=== PATIENT | female | born 1955 | race Caucasian/White ===

== ENCOUNTER 2018-05-25 18:29 | Emergency (ER) | payer MEDICARE, OTHER ==
[~2018-05-25] VITALS: Ht 160 cm; Wt 78.3 kg
[~2018-05-25 18:29] MED LIST: AMBIEN10 MG PO; ASPIRIN 32325 MG/TAB PO; CARAFATE 1GM1 G PO; CARAFATE1 GM/10 ML PO; CHOLESTEROL MED; CLEOCIN HC150 MG/CAP PO; COMBIVENT INH14.7 GM IH; COPAXONE20 MG SC; COUMADIN 1MG1 MG/TAB PO; DOXYCYCLINE 10100 MG PO; FLAGYL500 MG PO; LEVAQUIN 750MG750 M1 PO; LOVENOX 100100 MG/ML SQ; LOVENOX 3030 MG/0.3; MIDRIN CAPSULE1 CAP PO; NEXIUM40 MG PO; NITRO-DUR0.4 MG/PAT TD; NITROSTAT0.4 MG/TAB SL; NORCO 325 MG-51 TAB PO; NORCO 325 MG-7.1 TAB PO; NORVASC 5MG5 MG/TAB PO; PEPCID 20MG TAB20 MG PO; PERCOCET 325 MG1 TA2 PO; PERCR 7.5 PO; PHENERGAN 25 TA25 MG PO; PRAVACHOL 40MG40 MG PO; PREVACID 15MG15 M1; PRILOSEC 20MG20 MG PO; PROMETHAZINE V473 M2; PULMICORT180 MCG/Ac IH; REBIF22 MCG/0.5 SC; REGLAN 10MG10 MG/TAB PO; TESSALON PERLE200 MG PO; TOPAMAX50 MG PO; TOPROL XL 25MG25 MG PO; TUSS PO; TYLENOL #3 301 UDTAB PO; TYLENOL 325MG325 MG PO; VITAMIN D8000 IU/ML PO; ZITHROMAX 250M250 MG PO
[2018-05-25 18:31] VITALS: TEMP 98.4
[2018-05-25 19:15] LABS: BASO # 0.1 (0.0-0.2); BASO % 0.6 % (0.0-2.0); EOS # 0.2 (0.0-0.7); EOS % 1.6 % (0-4.0); GRAN # 5.6 (1.4-6.5); GRAN % 57.3 % (42.2-75.2); HEMATOCRIT 38.8 % (37.0-47.0); HEMOGLOBIN 12.6 g/dl (12.5-16.0); LYMPH # 3.1 (1.2-3.4); LYMPH % 31.2 % (20.0-51.0); MEAN CELL VOLUME 84 fl (80.0-100.0); MEAN CORPUSCULAR HEMOGLOBIN 27 pg (27.0-31.0); MEAN CORPUSCULAR HGB CONC 33 g/dl (33.0-37.0); MEAN PLATELET VOLUME 9.2 fl (7.4-10.4); MONO # 0.9 (0.1-0.6); MONO % 8.8 % (1.7-9.3); PLATELET COUNT 360 K/mm3 (130-400); RED BLOOD COUNT 4.62 M/mm3 (4.10-5.30); REDCELL DISTRIBUTION WIDTH-CV 14.7 % (11.5-14.5)
[2018-05-25 19:17] LABS: INR 0.9 (0.8-3.0); PROTHROMBIN TIME 10.4 SECONDS (9.7-12.8)
[2018-05-25 19:21] LABS: ALANINE AMINOTRANSFERASE 39 U/L (9-52); ALBUMIN 4.5 gm/dL (3.5-5.0); ALKALINE PHOSPHATASE 70 U/L (50-136); ANION GAP 13 mmol/L (7-16); AST,SGOT 39 U/L (15-37); BILIRUBIN,TOTAL 0.3 mg/dL (0.0-1.0); BLOOD UREA NITROGEN 38 mg/dL (7-17); CALCIUM 9.4 mg/dL (8.4-10.2); CARBON DIOXIDE 26 mmol/L (22-30); CHLORIDE 96 mmol/L (98-107); GLUCOSE 108 mg/dL (74-106); LIPASE 43 U/L (23-300); POTASSIUM 3.8 mmol/L (3.4-5.0); SODIUM 135 mmol/L (137-145); TOTAL PROTEIN 7.9 gm/dL (6.4-8.2)
[2018-05-25 19:35] LABS: TROPONIN-I < 0.012 ng/mL (0.000-0.034)
[2018-05-25] MEDS ORDERED: NITRO-DUR0.1 MG/PAT TD (22:25)
[2018-05-25] MEDS ORDERED: NEURONTIN300 MG/CAP PO (22:26)
[2018-05-25] MEDS ORDERED: PRIL40 PO (22:26)
[2018-05-25] MEDS ORDERED: DEMADEX100 MG PO (22:27)
[2018-05-25 22:54] VITALS: BP 118/69; PULSE 76
== END 2018-05-25 22:56 | disposition home or self-care (01) ==
LOC: COL.ER 18:29
PROVIDERS: Emergency Medicine
DX: R07.9 Chest pain, unspecified (principal); G35 Multiple sclerosis; Z86.718 Personal history of other venous thrombosis and embolism; Z95.5 Presence of coronary angioplasty implant and graft; Z79.82 Long term (current) use of aspirin
CPT/HCPCS: J1200; J1885; J2930; J7030; Q9967

== ENCOUNTER 2018-06-08 16:55 | Emergency (ER) | payer MEDICARE, OTHER ==
[~2018-06-08] VITALS: Ht 160 cm; Wt 79.1 kg
[~2018-06-08 16:55] MED LIST changes: +DEMADEX100 MG PO; +NEURONTIN300 MG/CAP PO; +NITRO-DUR0.1 MG/PAT TD; +PRIL40 PO
[2018-06-08 17:01] VITALS: TEMP 98.2
[2018-06-08] MEDS ORDERED: PROVIGIL200 MG PO (17:17)
[2018-06-08] MEDS ORDERED: GLUCOPHAGE500 MG/TAB PO (17:18)
[2018-06-08] MEDS ORDERED: KLOR-CON 1010 MEQ PO (17:18)
[2018-06-08] MEDS ORDERED: CRESTOR20 MG PO (17:19)
[2018-06-08] MEDS ORDERED: LOFIBRA54 MG PO (17:19)
[2018-06-08] MEDS ORDERED: DEMADEX100 MG PO (17:20)
[2018-06-08] MEDS ORDERED: TOPAMAX50 MG PO (17:21)
[2018-06-08] MEDS ORDERED: ALDACTONE 25MG25 M1 PO (17:22)
[2018-06-08] MEDS ORDERED: B COMPLEX #11 TA1 PO (17:23)
[2018-06-08] MEDS ORDERED: VITAMIN D 1001000 IU (17:23)
[2018-06-08] MEDS ORDERED: MAGNESIUM500 MG PO (17:23)
[2018-06-08 17:38] LABS: BASO # 0.1 (0.0-0.2); BASO % 0.6 % (0.0-2.0); EOS # 0.2 (0.0-0.7); EOS % 1.2 % (0-4.0); GRAN # 8.2 (1.4-6.5); GRAN % 65.2 % (42.2-75.2); HEMATOCRIT 41.2 % (37.0-47.0); HEMOGLOBIN 13.6 g/dl (12.5-16.0); LYMPH # 3.1 (1.2-3.4); LYMPH % 24.4 % (20.0-51.0); MEAN CELL VOLUME 83 fl (80.0-100.0); MEAN CORPUSCULAR HEMOGLOBIN 27 pg (27.0-31.0); MEAN CORPUSCULAR HGB CONC 33 g/dl (33.0-37.0); MEAN PLATELET VOLUME 9.2 fl (7.4-10.4); MONO % 8.1 % (1.7-9.3); PLATELET COUNT 398 K/mm3 (130-400); RED BLOOD COUNT 4.99 M/mm3 (4.10-5.30); REDCELL DISTRIBUTION WIDTH-CV 14.5 % (11.5-14.5)
[2018-06-08 17:45] LABS: INR 0.9 (0.8-3.0); PROTHROMBIN TIME 10.4 SECONDS (9.7-12.8)
[2018-06-08 17:51] LABS: ALBUMIN 4.7 gm/dL (3.5-5.0); BILIRUBIN,TOTAL 0.6 mg/dL (0.0-1.0); CALCIUM 9.8 mg/dL (8.4-10.2); CREATININE, serum 2.06 mg/dL (0.52-1.25); TOTAL PROTEIN 8.3 gm/dL (6.4-8.2)
[2018-06-08 17:53] LABS: POTASSIUM 2.9 mmol/L (3.4-5.0)
[2018-06-08 18:07] LABS: COLLECTION METHOD CLEAN CATCH
[2018-06-08 18:16] LABS: HYALINE CAST >12 /lpf; MUCOUS Present /lpf; PH 5 (5-8); SQUAMOUS EPITHELIAL 0-2 /hpf; URINE APPEARANCE Clear; URINE BACTERIA None Seen /hpf; URINE BILIRUBIN Negative (NEGATIVE); URINE BLOOD Negative (NEGATIVE); URINE COLOR Straw; URINE GLUCOSE Negative (NEGATIVE); URINE KETONE Negative (NEGATIVE); URINE LEUKOCYTE ESTERASE Negative (NEGATIVE); URINE NITRATE Negative (NEGATIVE); URINE PROTEIN(semi-quant) Negative (NEGATIVE); URINE RBC 0-2 /hpf; URINE UROBILINOGEN Negative (NEGATIVE)
[2018-06-08] MEDS ORDERED: FLEXERIL 1010 MG/TAB PO (19:31)
[2018-06-08 19:43] VITALS: BP 125/67; PULSE 86
== END 2018-06-08 19:48 | disposition home or self-care (01) ==
LOC: COL.ER 16:55
PROVIDERS: Physician Assistant
DX: M79.605 Pain in left leg (principal); R79.89 Other specified abnormal findings of blood chemistry; I50.9 Heart failure, unspecified; Z86.718 Personal history of other venous thrombosis and embolism; I25.10 Atherosclerotic heart disease of native coronary artery without angina pectoris; Z86.711 Personal history of pulmonary embolism; Z79.82 Long term (current) use of aspirin; Z79.84 Long term (current) use of oral hypoglycemic drugs
CPT/HCPCS: J7030

== ENCOUNTER → 2018-06-30 | Outpatient (CLI) | payer MEDICARE, OTHER ==
[~2018-06-30] MED LIST changes: +ALDACTONE 25MG25 M1 PO; +ASPIRIN E.C. 8181 MG PO; +B COMPLEX #11 TA1 PO; +CRESTOR20 MG PO; +FLEXERIL 1010 MG/TAB PO; +GLUCOPHAGE500 MG/TAB PO; +KLOR-CON 1010 MEQ PO; +LOFIBRA54 MG PO; +MAGNESIUM500 MG PO; +MOTRIN 800800 MG/TAB PO; +NATURAL MAGNES200 MG PO; +NITRO-DUR0.3 MG/PAT TD; +PROVIGIL200 MG PO; +REQUIP 0.5MG0.5 MG PO; +TYLENOL W/COD1 UDTAB PO; +VITAMIN D 1001000 IU
== END ==
LOC: MC.RAD 09:48
DX: Z12.31 Encounter for screening mammogram for malignant neoplasm of breast (principal)

== ENCOUNTER 2018-07-01 06:56 | Day surgery (SDC) | payer MEDICARE, OTHER ==
[~2018-07-01] VITALS: Ht 160 cm; Wt 77.6 kg
[2018-07-01] VITALS (8 sets, daily range): BP systolic 109–132; BP diastolic 51–73; PULSE 70–86; TEMP 97–97.7
[~2018-07-01 06:56] MED LIST changes: -ASPIRIN E.C. 8181 MG PO; -MOTRIN 800800 MG/TAB PO; -NATURAL MAGNES200 MG PO; -NITRO-DUR0.3 MG/PAT TD; -REQUIP 0.5MG0.5 MG PO; -TYLENOL W/COD1 UDTAB PO
[2018-07-01] MEDS ORDERED: NATURAL MAGNES200 MG PO (07:47)
[2018-07-01] MEDS ORDERED: ASPIRIN E.C. 8181 MG PO (07:48)
[2018-07-01] MEDS ORDERED: REQUIP 0.5MG0.5 MG PO (07:50)
[2018-07-01] MEDS ORDERED: NITRO-DUR0.3 MG/PAT TD (07:51)
[2018-07-01] MEDS ORDERED: TYLENOL W/COD1 UDTAB PO (14:04)
[2018-07-01] MEDS ORDERED: MOTRIN 800800 MG/TAB PO (14:05)
== END 2018-07-01 15:20 | disposition home or self-care (01) ==
LOC: SDCO 06:56
DX: S46.011A Strain of muscle(s) and tendon(s) of the rotator cuff of right shoulder, initial encounter (principal); I50.9 Heart failure, unspecified; G35 Multiple sclerosis; I25.119 Atherosclerotic heart disease of native coronary artery with unspecified angina pectoris; J45.909 Unspecified asthma, uncomplicated; K21.9 Gastro-esophageal reflux disease without esophagitis; M19.90 Unspecified osteoarthritis, unspecified site; E11.43 Type 2 diabetes mellitus with diabetic autonomic (poly)neuropathy; K31.84 Gastroparesis; Z79.82 Long term (current) use of aspirin; Z79.84 Long term (current) use of oral hypoglycemic drugs; Z88.3 Allergy status to other anti-infective agents; Z90.49 Acquired absence of other specified parts of digestive tract; Z90.710 Acquired absence of both cervix and uterus; Z85.3 Personal history of malignant neoplasm of breast; Z86.711 Personal history of pulmonary embolism; Z86.718 Personal history of other venous thrombosis and embolism; Z83.3 Family history of diabetes mellitus; Z82.49 Family history of ischemic heart disease and other diseases of the circulatory system; Z82.61 Family history of arthritis
CPT/HCPCS: C1713; J0171; J0690; J1100; J1885; J2405; J2704; J3010; J7120

== ENCOUNTER 2018-07-07 12:59 | Emergency (ER) | payer MEDICARE, OTHER ==
[~2018-07-07] VITALS: Ht 160 cm; Wt 79.5 kg
[~2018-07-07 12:59] MED LIST changes: +ASPIRIN E.C. 8181 MG PO; +MOTRIN 800800 MG/TAB PO; +NATURAL MAGNES200 MG PO; +NITRO-DUR0.3 MG/PAT TD; +REQUIP 0.5MG0.5 MG PO; +TYLENOL W/COD1 UDTAB PO
[2018-07-07 13:05] VITALS: TEMP 99.2
[2018-07-07 14:16] LABS: BASO % 0.4 % (0.0-2.0); EOS # 0.2 (0.0-0.7); EOS % 2.5 % (0-4.0); GRAN # 4.4 (1.4-6.5); GRAN % 54.5 % (42.2-75.2); HEMATOCRIT 37.6 % (37.0-47.0); HEMOGLOBIN 12.3 g/dl (12.5-16.0); LYMPH # 2.7 (1.2-3.4); LYMPH % 33.3 % (20.0-51.0); MEAN CELL VOLUME 83 fl (80.0-100.0); MEAN CORPUSCULAR HEMOGLOBIN 27 pg (27.0-31.0); MEAN CORPUSCULAR HGB CONC 33 g/dl (33.0-37.0); MEAN PLATELET VOLUME 9.1 fl (7.4-10.4); MONO # 0.7 (0.1-0.6); MONO % 8.7 % (1.7-9.3); PLATELET COUNT 337 K/mm3 (130-400); RED BLOOD COUNT 4.52 M/mm3 (4.10-5.30); REDCELL DISTRIBUTION WIDTH-CV 14.5 % (11.5-14.5)
[2018-07-07 14:22] LABS: PARTIAL THROMBOPLASTIN TIME 26.9 SECONDS (26.0-37.0)
[2018-07-07 14:32] LABS: ALANINE AMINOTRANSFERASE 182 U/L (9-52); ALBUMIN 4.2 gm/dL (3.5-5.0); ALKALINE PHOSPHATASE 129 U/L (50-136); ANION GAP 13 mmol/L (7-16); AST,SGOT 96 U/L (15-37); BILIRUBIN,TOTAL 0.5 mg/dL (0.0-1.0); BLOOD UREA NITROGEN 21 mg/dL (7-17); CALCIUM 9.9 mg/dL (8.4-10.2); CARBON DIOXIDE 30 mmol/L (22-30); CHLORIDE 92 mmol/L (98-107); CREATININE, serum 1.24 mg/dL (0.52-1.25); GLUCOSE 101 mg/dL (74-106); POTASSIUM 3.7 mmol/L (3.4-5.0); SODIUM 135 mmol/L (137-145); TOTAL PROTEIN 7.6 gm/dL (6.4-8.2)
[2018-07-07 14:43] LABS: TROPONIN-I < 0.012 ng/mL (0.000-0.034)
[2018-07-07 17:20] VITALS: BP 109/68; PULSE 74
== END 2018-07-07 17:40 | disposition home or self-care (01) ==
LOC: COL.ER 12:59
PROVIDERS: Family Medicine
DX: R06.02 Shortness of breath (principal); R07.9 Chest pain, unspecified; E11.9 Type 2 diabetes mellitus without complications; I10 Essential (primary) hypertension; G35 Multiple sclerosis; G25.81 Restless legs syndrome; Z79.84 Long term (current) use of oral hypoglycemic drugs; Z79.82 Long term (current) use of aspirin; Z86.718 Personal history of other venous thrombosis and embolism
CPT/HCPCS: J1200; J2405; J2930; Q9967

== ENCOUNTER 2018-07-29 10:19 | Emergency (ER) | payer MEDICARE, OTHER ==
[~2018-07-29] VITALS: Ht 160 cm; Wt 78.2 kg
[2018-07-29 10:25] VITALS: TEMP 100
[2018-07-29 11:26] VITALS: BP 131/78; PULSE 79
== END 2018-07-29 11:26 | disposition other institution (70) ==
LOC: COL.ER 10:19
DX: S90.32XA Contusion of left foot, initial encounter (principal); G35 Multiple sclerosis; Z79.84 Long term (current) use of oral hypoglycemic drugs; Z79.82 Long term (current) use of aspirin; W22.8XXA Striking against or struck by other objects, initial encounter

== ENCOUNTER 2018-08-21 08:03 | Emergency (ER) | payer MEDICARE, OTHER ==
[~2018-08-21] VITALS: Ht 160 cm; Wt 79.1 kg
[2018-08-21 08:14] LABS: COLLECTION METHOD CLEAN CATCH
[2018-08-21 08:27] LABS: PH 6 (5-8); SQUAMOUS EPITHELIAL None Seen /hpf; URINE APPEARANCE Turbid; URINE BACTERIA None Seen /hpf; URINE BILIRUBIN Negative (NEGATIVE); URINE BLOOD 3+ (NEGATIVE); URINE COLOR Red; URINE GLUCOSE Negative (NEGATIVE); URINE KETONE Negative (NEGATIVE); URINE LEUKOCYTE ESTERASE 1+ (NEGATIVE); URINE NITRATE Negative (NEGATIVE); URINE PROTEIN(semi-quant) 2+ (NEGATIVE); URINE RBC >50 /hpf; URINE UROBILINOGEN Negative (NEGATIVE)
[2018-08-21] MEDS ORDERED: PYRIDIUM 100MG100 MG PO (08:40)
[2018-08-21] MEDS ORDERED: OMNICEF 300MG300 MG PO (08:40)
[2018-08-21 08:53] VITALS: BP 135/75; PULSE 85; TEMP 98
== END 2018-08-21 08:53 | disposition other institution (70) ==
LOC: COL.ER 08:03
PROVIDERS: Emergency Medicine
DX: N30.90 Cystitis, unspecified without hematuria (principal); Z90.710 Acquired absence of both cervix and uterus; Z79.84 Long term (current) use of oral hypoglycemic drugs

== ENCOUNTER → 2018-09-25 | Outpatient (CLI) | payer MEDICARE, OTHER ==
[~2018-09-25] MED LIST changes: +OMNICEF 300MG300 MG PO; +PYRIDIUM 100MG100 MG PO
== END ==
LOC: COL.RAD 09-23 09:00
DX: H91.8X2 Other specified hearing loss, left ear (principal); Z86.69 Personal history of other diseases of the nervous system and sense organs
CPT/HCPCS: A9585

== ENCOUNTER 2018-10-05 08:00 | Emergency (ER) | payer MEDICARE, OTHER ==
[~2018-10-05] VITALS: Ht 160 cm; Wt 81.0 kg
[2018-10-05 08:04] VITALS: TEMP 98.8
[2018-10-05] MEDS ORDERED: VENTOLIN0.09 MG IH (08:19)
[2018-10-05] MEDS ORDERED: COPAXONE40 MG/ML SQ (08:25)
[2018-10-05] MEDS ORDERED: TRULICITY0.75 MG/0. SQ (08:27)
[2018-10-05 08:48] LABS: COLLECTION METHOD CLEAN CATCH
[2018-10-05 08:56] LABS: HYALINE CAST >12 /lpf; MUCOUS Present /lpf; PH 5 (5-8); SQUAMOUS EPITHELIAL None Seen /hpf; URINE APPEARANCE Hazy; URINE BACTERIA None Seen /hpf; URINE BILIRUBIN Negative (NEGATIVE); URINE BLOOD Negative (NEGATIVE); URINE COLOR Yellow; URINE GLUCOSE Negative (NEGATIVE); URINE KETONE Negative (NEGATIVE); URINE LEUKOCYTE ESTERASE Trace (NEGATIVE); URINE NITRATE Negative (NEGATIVE); URINE PROTEIN(semi-quant) Negative (NEGATIVE); URINE RBC 0-2 /hpf; URINE UROBILINOGEN Negative (NEGATIVE)
[2018-10-05 09:48] LABS: BASO # 0.1 (0.0-0.2); BASO % 0.5 % (0.0-2.0); EOS # 0.2 (0.0-0.7); EOS % 1.7 % (0-4.0); GRAN # 5.9 (1.4-6.5); GRAN % 64.3 % (42.2-75.2); HEMATOCRIT 43.1 % (37.0-47.0); HEMOGLOBIN 14.1 g/dl (12.5-16.0); LYMPH # 2.4 (1.2-3.4); LYMPH % 25.7 % (20.0-51.0); MEAN CELL VOLUME 83 fl (80.0-100.0); MEAN CORPUSCULAR HEMOGLOBIN 27 pg (27.0-31.0); MEAN CORPUSCULAR HGB CONC 33 g/dl (33.0-37.0); MEAN PLATELET VOLUME 9.5 fl (7.4-10.4); MONO # 0.7 (0.1-0.6); MONO % 7.4 % (1.7-9.3); PLATELET COUNT 338 K/mm3 (130-400); REDCELL DISTRIBUTION WIDTH-CV 14.9 % (11.5-14.5)
[2018-10-05 09:59] LABS: ALBUMIN 4.8 gm/dL (3.5-5.0); BILIRUBIN,TOTAL 0.6 mg/dL (0.0-1.0); CALCIUM 10.2 mg/dL (8.4-10.2); CREATININE, serum 1.63 mg/dL (0.52-1.25); POTASSIUM 3.2 mmol/L (3.4-5.0); TOTAL PROTEIN 8.6 gm/dL (6.4-8.2)
[2018-10-05] MEDS ORDERED: OMNICEF 300MG300 MG PO (10:54)
[2018-10-05] MEDS ORDERED: WALKER MC (11:35)
[2018-10-05 11:41] VITALS: BP 126/80; PULSE 88
== END 2018-10-05 11:42 | disposition home or self-care (01) ==
LOC: COL.ER 08:00
PROVIDERS: Emergency Medicine
DX: N39.0 Urinary tract infection, site not specified (principal); G43.909 Migraine, unspecified, not intractable, without status migrainosus; G35 Multiple sclerosis; E78.5 Hyperlipidemia, unspecified; Z90.49 Acquired absence of other specified parts of digestive tract; Z90.710 Acquired absence of both cervix and uterus; Z90.89 Acquired absence of other organs; Z98.890 Other specified postprocedural states; Z85.3 Personal history of malignant neoplasm of breast
CPT/HCPCS: A4216; J0696; J7030

== ENCOUNTER 2018-10-18 14:02 | Emergency (ER) | payer MEDICARE, OTHER ==
[~2018-10-18] VITALS: Ht 160 cm; Wt 82.7 kg
[~2018-10-18 14:02] MED LIST changes: +COPAXONE40 MG/ML SQ; +TRULICITY0.75 MG/0. SQ; +VENTOLIN0.09 MG IH; +WALKER MC
[2018-10-18 14:07] VITALS: BP 132/89
[2018-10-18 15:06] LABS: COLLECTION METHOD CLEAN CATCH
[2018-10-18 15:12] LABS: MUCOUS Present /lpf; PH 7 (5-8); SQUAMOUS EPITHELIAL 0-2 /hpf; URINE APPEARANCE Clear; URINE BACTERIA None Seen /hpf; URINE BILIRUBIN Negative (NEGATIVE); URINE BLOOD 1+ (NEGATIVE); URINE COLOR Yellow; URINE GLUCOSE Negative (NEGATIVE); URINE KETONE Negative (NEGATIVE); URINE LEUKOCYTE ESTERASE Negative (NEGATIVE); URINE NITRATE Negative (NEGATIVE); URINE PROTEIN(semi-quant) Negative (NEGATIVE); URINE RBC 0-2 /hpf; URINE UROBILINOGEN Negative (NEGATIVE)
[2018-10-18 15:20] VITALS: TEMP 97.9
[2018-10-18 16:19] LABS: BASO # 0.1 (0.0-0.2); BASO % 0.6 % (0.0-2.0); EOS # 0.1 (0.0-0.7); EOS % 1.2 % (0-4.0); GRAN # 7.4 (1.4-6.5); GRAN % 64.2 % (42.2-75.2); HEMATOCRIT 41.1 % (37.0-47.0); HEMOGLOBIN 12.8 g/dl (12.5-16.0); LYMPH # 2.8 (1.2-3.4); LYMPH % 24.4 % (20.0-51.0); MEAN CELL VOLUME 87 fl (80.0-100.0); MEAN CORPUSCULAR HEMOGLOBIN 27 pg (27.0-31.0); MEAN CORPUSCULAR HGB CONC 31 g/dl (33.0-37.0); MEAN PLATELET VOLUME 9.5 fl (7.4-10.4); MONO # 0.9 (0.1-0.6); PLATELET COUNT 281 K/mm3 (130-400); RED BLOOD COUNT 4.72 M/mm3 (4.10-5.30); REDCELL DISTRIBUTION WIDTH-CV 14.7 % (11.5-14.5)
[2018-10-18 16:33] LABS: ALBUMIN 4.3 gm/dL (3.5-5.0); BILIRUBIN,TOTAL 0.6 mg/dL (0.0-1.0); C-REACTIVE PROTEIN 1.2 mg/dL (0.0-0.9); CALCIUM 9.7 mg/dL (8.4-10.2); CREATININE, serum 1.04 mg/dL (0.52-1.25); POTASSIUM 3.3 mmol/L (3.4-5.0); TOTAL PROTEIN 7.6 gm/dL (6.4-8.2)
[2018-10-18] MEDS ORDERED: ELIQUIS 5MG PO (17:45)
[2018-10-18 18:00] VITALS: PULSE 80
== END 2018-10-18 18:00 | disposition home or self-care (01) ==
LOC: COL.ER 14:02
PROVIDERS: Physician Assistant
DX: I82.4Z2 Acute embolism and thrombosis of unspecified deep veins of left distal lower extremity (principal); E78.5 Hyperlipidemia, unspecified; Z79.82 Long term (current) use of aspirin; Z90.49 Acquired absence of other specified parts of digestive tract; Z98.890 Other specified postprocedural states; Z85.3 Personal history of malignant neoplasm of breast
CPT/HCPCS: J1170; J2405

== ENCOUNTER → 2018-10-20 | Outpatient (CLI) | payer MEDICARE, OTHER ==
[~2018-10-20] MED LIST changes: +ELIQUIS 5MG PO
== END ==
LOC: COL.RAD 13:00
DX: R06.02 Shortness of breath (principal); Z86.718 Personal history of other venous thrombosis and embolism; Z98.890 Other specified postprocedural states
CPT/HCPCS: J1200; J2930; Q9967

== ENCOUNTER 2018-11-11 15:45 | Outpatient (RCR) | payer MEDICARE, OTHER | END 2018-11-15 | disposition still patient (30) | LOC: WSST | DX: G35 Multiple sclerosis (principal); R13.10 Dysphagia, unspecified | CPT/HCPCS: G8996-GN; G8997-GN; G9168-GN; G9169-GN ==

== ENCOUNTER 2018-12-17 14:30 | Outpatient (RCR) | payer MEDICARE, OTHER ==
[2018-12-20] MEDS ORDERED: ELIQUIS 5MG PO (13:36)
[2018-12-20] MEDS ORDERED: NEURONTIN600 MG/TAB PO (13:38)
[2018-12-20] MEDS ORDERED: ALDACTONE 25MG25 M1 PO (13:39)
[2019-01-15] MEDS ORDERED: NUEDEXTA 20 MG-1 CAP PO (17:30)
[2019-01-15] MEDS ORDERED: MIRALAX PA17 GM/Dose PO (17:30)
[2019-01-15] MEDS ORDERED: ZAROXOLYN 2.52.5 MG PO (21:51)
[2019-01-15] MEDS ORDERED: CARDIZEM CD 12120 MG PO (21:51)
[2019-01-15] MEDS ORDERED: VITAMIN D 1001000 IU PO (21:55)
[2019-01-15] MEDS ORDERED: RISPERDAL 0.5M0.5 MG PO (21:55)
== END 2019-02-23 | disposition home or self-care (01) ==
LOC: WSST
DX: R13.13 Dysphagia, pharyngeal phase (principal); R49.0 Dysphonia; R41.81 Age-related cognitive decline; G35 Multiple sclerosis

== ENCOUNTER 2018-12-20 12:43 | Emergency (ER) | payer MEDICARE, OTHER ==
[~2018-12-20] VITALS: Ht 160 cm; Wt 82.3 kg
[2018-12-20 12:48] VITALS: TEMP 99.6
[2018-12-20 13:30] LABS: BASO # 0.1 (0.0-0.2); EOS # 0.1 (0.0-0.7); GRAN # 4.9 (1.4-6.5); GRAN % 54.9 % (42.2-75.2); HEMOGLOBIN 14.3 g/dl (12.5-16.0); LYMPH # 2.7 (1.2-3.4); MEAN CELL VOLUME 81 fl (80.0-100.0); MEAN CORPUSCULAR HEMOGLOBIN 26 pg (27.0-31.0); MEAN CORPUSCULAR HGB CONC 33 g/dl (33.0-37.0); MEAN PLATELET VOLUME 9.7 fl (7.4-10.4); MONO # 1.2 (0.1-0.6); MONO % 12.8 % (1.7-9.3); PLATELET COUNT 423 K/mm3 (130-400); RED BLOOD COUNT 5.44 M/mm3 (4.10-5.30); REDCELL DISTRIBUTION WIDTH-CV 14.1 % (11.5-14.5)
[2018-12-20 13:35] LABS: ALANINE AMINOTRANSFERASE 18 U/L (9-52); ALBUMIN 4.9 gm/dL (3.5-5.0); ALKALINE PHOSPHATASE 99 U/L (50-136); ANION GAP 19 mmol/L (7-16); AST,SGOT 37 U/L (15-37); BILIRUBIN,TOTAL 0.7 mg/dL (0.0-1.0); BLOOD UREA NITROGEN 56 mg/dL (7-17); CALCIUM 10.5 mg/dL (8.4-10.2); CARBON DIOXIDE 26 mmol/L (22-30); CREATININE, serum 1.64 mg/dL (0.52-1.25); GLUCOSE 155 mg/dL (74-106); INR 1.7 (0.8-3.0); LIPASE 44 U/L (23-300); PROTHROMBIN TIME 19.4 SECONDS (9.7-12.8); SODIUM 134 mmol/L (137-145); TOTAL PROTEIN 8.5 gm/dL (6.4-8.2)
[2018-12-20] MEDS ORDERED: ELIQUIS 5MG PO (13:36)
[2018-12-20 13:37] LABS: CHLORIDE 89 mmol/L (98-107)
[2018-12-20] MEDS ORDERED: NEURONTIN600 MG/TAB PO (13:38)
[2018-12-20] MEDS ORDERED: ALDACTONE 25MG25 M1 PO (13:39)
[2018-12-20 13:47] LABS: TROPONIN-I < 0.012 ng/mL (0.000-0.035)
[2018-12-20 14:52] LABS: COLLECTION METHOD CLEAN CATCH
[2018-12-20 15:10] LABS: PH 7 (5-8); SQUAMOUS EPITHELIAL None Seen /hpf; URINE APPEARANCE Clear; URINE BACTERIA None Seen /hpf; URINE BILIRUBIN Negative (NEGATIVE); URINE BLOOD Negative (NEGATIVE); URINE COLOR Straw; URINE GLUCOSE Negative (NEGATIVE); URINE KETONE Negative (NEGATIVE); URINE LEUKOCYTE ESTERASE Trace (NEGATIVE); URINE NITRATE Negative (NEGATIVE); URINE PROTEIN(semi-quant) Negative (NEGATIVE); URINE RBC 0-2 /hpf; URINE UROBILINOGEN Negative (NEGATIVE)
[2018-12-20 19:20] VITALS: BP 108/66; PULSE 85
== END 2018-12-20 19:20 | disposition home or self-care (01) ==
LOC: COL.ER 12:43
PROVIDERS: Emergency Medicine
DX: R51 Headache (principal); R53.81 Other malaise; R06.02 Shortness of breath; Z86.718 Personal history of other venous thrombosis and embolism; Z90.49 Acquired absence of other specified parts of digestive tract
CPT/HCPCS: J1170; J1200; J1630; J2405; J2550; J2930; J3480; J7030; Q9967

== ENCOUNTER 2019-01-15 13:38 | Observation (INO) | payer MEDICARE, OTHER ==
[~2019-01-15] VITALS: Ht 160 cm; Wt 75.4 kg
[~2019-01-15 13:38] MED LIST changes: +NEURONTIN600 MG/TAB PO
[2019-01-15 14:57] LABS: ARTERIAL BLD GAS O2 SATURATION 95.5 % (92-100); ARTERIAL BLD GAS TCO2 CT 28.5; ARTERIAL BLOOD GAS BASE EXCESS 4.3 (-2-2); ARTERIAL BLOOD GAS HCO3 27.4 meq/L (22-26); ARTERIAL BLOOD GAS PCO2 36.3 mmHg (35-45); ARTERIAL BLOOD GAS PO2 76.9 mmHg (80-100)
[2019-01-15 14:58] LABS: BASO % 0.4 % (0.0-2.0); EOS # 0.2 (0.0-0.7); EOS % 2.4 % (0-4.0); GRAN # 4.9 (1.4-6.5); GRAN % 61.6 % (42.2-75.2); HEMATOCRIT 45.2 % (37.0-47.0); HEMOGLOBIN 14.3 g/dl (12.5-16.0); LYMPH % 25.1 % (20.0-51.0); MEAN CELL VOLUME 85 fl (80.0-100.0); MEAN CORPUSCULAR HEMOGLOBIN 27 pg (27.0-31.0); MEAN CORPUSCULAR HGB CONC 32 g/dl (33.0-37.0); MEAN PLATELET VOLUME 9.4 fl (7.4-10.4); MONO # 0.8 (0.1-0.6); MONO % 9.7 % (1.7-9.3); PLATELET COUNT 305 K/mm3 (130-400); RED BLOOD COUNT 5.35 M/mm3 (4.10-5.30); REDCELL DISTRIBUTION WIDTH-CV 15.5 % (11.5-14.5)
[2019-01-15 15:31] LABS: COLLECTION METHOD CLEAN CATCH
[2019-01-15 15:44] LABS: ALBUMIN 4.5 gm/dL (3.5-5.0); BILIRUBIN,TOTAL 0.5 mg/dL (0.0-1.0); CALCIUM 10.4 mg/dL (8.4-10.2); CREATININE, serum 1.32 mg/dL (0.52-1.25); TOTAL PROTEIN 8.2 gm/dL (6.4-8.2)
[2019-01-15 15:48] LABS: MUCOUS Present /lpf; PH 5 (5-8); SQUAMOUS EPITHELIAL None Seen /hpf; URINE APPEARANCE Clear; URINE BACTERIA None Seen /hpf; URINE BILIRUBIN Negative (NEGATIVE); URINE BLOOD Negative (NEGATIVE); URINE COLOR Straw; URINE GLUCOSE Negative (NEGATIVE); URINE KETONE Negative (NEGATIVE); URINE LEUKOCYTE ESTERASE Negative (NEGATIVE); URINE NITRATE Negative (NEGATIVE); URINE PROTEIN(semi-quant) Negative (NEGATIVE); URINE RBC 0-2 /hpf; URINE UROBILINOGEN Negative (NEGATIVE)
[2019-01-15 15:55] LABS: POTASSIUM 2.9 mmol/L (3.4-5.0)
[2019-01-15 16:19] VITALS: BP 140/82; PULSE 89
[2019-01-15] MEDS ORDERED: NUEDEXTA 20 MG-1 CAP PO (17:30)
[2019-01-15] MEDS ORDERED: MIRALAX PA17 GM/Dose PO (17:30)
[2019-01-15 17:35] LABS: TROPONIN-I < 0.012 ng/mL (0.000-0.035)
--- NOTE | 2019-01-15 20:30 | NUR ---
Admitted to medical floor from ER with hypokalemia, and orthostatic hypotension-on potassium protocol, IV fluids of NSat 150cc/hr, Up to bathroom with assist-slow but steady. Tele on.Understands to call for assistance to the bathroom-
[2019-01-15 21:07] VITALS: BP 144/68; PULSE 99; TEMP 97.8
[2019-01-15 21:37] LABS: TSH w REFLEX 2.6 uIU/mL (0.465-4.680)
[2019-01-15] MEDS ORDERED: CARDIZEM CD 12120 MG PO (21:51)
[2019-01-15] MEDS ORDERED: ZAROXOLYN 2.52.5 MG PO (21:51)
[2019-01-15] MEDS ORDERED: RISPERDAL 0.5M0.5 MG PO (21:55)
[2019-01-15] MEDS ORDERED: VITAMIN D 1001000 IU PO (21:55)
[2019-01-16 01:14] VITALS: BP 104/43; BP 93/48; PULSE 90; TEMP 97.9
--- NOTE | 2019-01-16 05:00 | NUR ---
Quiet night-- did get 3-4 hours of sleep towards the morning--did call Sangeeta ALBERTS for pain meds during the shift- pt having back pain--was given Ultram and Tylenol x1--most recent K+ 3.6, on protocol--will recheck this morning.
[2019-01-16 09:06] LABS: BASO % 0.4 % (0.0-2.0); EOS # 0.1 (0.0-0.7); EOS % 2.9 % (0-4.0); GRAN # 1.9 (1.4-6.5); HEMATOCRIT 39.1 % (37.0-47.0); MEAN CELL VOLUME 85 fl (80.0-100.0); MEAN CORPUSCULAR HGB CONC 31 g/dl (33.0-37.0); MEAN PLATELET VOLUME 9.6 fl (7.4-10.4); MONO # 0.5 (0.1-0.6); MONO % 10.6 % (1.7-9.3); PLATELET COUNT 263 K/mm3 (130-400); RED BLOOD COUNT 4.61 M/mm3 (4.10-5.30); REDCELL DISTRIBUTION WIDTH-CV 15.6 % (11.5-14.5)
[2019-01-16 09:14] LABS: HEMOGLOBIN 12.2 g/dl (12.5-16.0); MEAN CORPUSCULAR HEMOGLOBIN 26 pg (27.0-31.0)
[2019-01-16 09:15] LABS: ALBUMIN 3.8 gm/dL (3.5-5.0); BILIRUBIN,TOTAL 0.4 mg/dL (0.0-1.0); CALCIUM 9.6 mg/dL (8.4-10.2); CREATININE, serum 1.25 mg/dL (0.52-1.25); POTASSIUM 3.4 mmol/L (3.4-5.0); TOTAL PROTEIN 6.8 gm/dL (6.4-8.2)
[2019-01-16 09:44] VITALS: BP 108/56; PULSE 93; TEMP 97.9
[2019-01-16 09:51] VITALS: BP 129/57
--- NOTE | 2019-01-16 12:53 | NUR ---
SEAN met with the patient to discuss a discharge plan. The patient lives in [place] with her , Sher. The patient does not have any DME and she reports independence with ADLs. The patient's PCP is Dr. Katerine Inman and the patient receives her medications from [facility]. The patient reports no difficulties obtaining her medications. The patient does have advanced directives in the EMR. Upon discharge the patient plans to return home with Sher. There are no additional needs at this time.
[2019-01-16 13:00] VITALS: BP 106/54; PULSE 90; TEMP 97.9
[2019-01-16 14:09] VITALS: BP 106/54
== END 2019-01-16 18:57 | disposition home or self-care (01) ==
LOC: COL.ER 13:38 → MEDICAL 18:03
PROVIDERS: Emergency Medicine; Family Medicine; Nurse Practitioner Family; ADMIT Hospitalist
DX: R06.02 Shortness of breath (principal); R10.10 Upper abdominal pain, unspecified; E78.5 Hyperlipidemia, unspecified; E11.21 Type 2 diabetes mellitus with diabetic nephropathy; E11.43 Type 2 diabetes mellitus with diabetic autonomic (poly)neuropathy; K31.84 Gastroparesis; I25.10 Atherosclerotic heart disease of native coronary artery without angina pectoris; G35 Multiple sclerosis; K57.92 Diverticulitis of intestine, part unspecified, without perforation or abscess without bleeding; Z85.3 Personal history of malignant neoplasm of breast; Z86.718 Personal history of other venous thrombosis and embolism; Z86.711 Personal history of pulmonary embolism; Z79.01 Long term (current) use of anticoagulants; G43.909 Migraine, unspecified, not intractable, without status migrainosus; I50.30 Unspecified diastolic (congestive) heart failure; Z95.818 Presence of other cardiac implants and grafts; Z90.49 Acquired absence of other specified parts of digestive tract; Z90.710 Acquired absence of both cervix and uterus; Z95.828 Presence of other vascular implants and grafts; Z80.3 Family history of malignant neoplasm of breast; Z80.0 Family history of malignant neoplasm of digestive organs; Z80.8 Family history of malignant neoplasm of other organs or systems; Z80.1 Family history of malignant neoplasm of trachea, bronchus and lung; Z83.3 Family history of diabetes mellitus; Z79.899 Other long term (current) drug therapy
CPT/HCPCS: G0378; J1815; J7030

== ENCOUNTER → 2019-01-27 | Outpatient (CLI) | payer MEDICARE, OTHER ==
[~2019-01-27] MED LIST changes: +CARDIZEM CD 12120 MG PO; +MIRALAX PA17 GM/Dose PO; +NUEDEXTA 20 MG-1 CAP PO; +RISPERDAL 0.5M0.5 MG PO; +VITAMIN D 1001000 IU PO; +ZAROXOLYN 2.52.5 MG PO
== END ==
LOC: COL.VAS 07:52
DX: M79.89 Other specified soft tissue disorders (principal)

== ENCOUNTER → 2019-02-15 | Outpatient (CLI) | payer MEDICARE, OTHER | LOC: COL.PUL 06:55 | DX: R06.02 Shortness of breath (principal) ==

== ENCOUNTER → 2019-03-16 | Outpatient (CLI) | payer MEDICARE, OTHER ==
[2019-03-16 07:32] LABS: ARTERIAL BLD GAS O2 SATURATION 97.4 % (92-100); ARTERIAL BLD GAS TCO2 CT 24.3; ARTERIAL BLOOD GAS HCO3 23.3 meq/L (22-26); ARTERIAL BLOOD GAS PCO2 33.7 mmHg (35-45); ARTERIAL BLOOD GAS PO2 96.1 mmHg (80-100); ARTERIAL BLOOD GAS pH 7.46 (7.35-7.45)
== END ==
LOC: COL.PUL 03-03 07:30
PROVIDERS: Internal Medicine Pulmonary Disease
DX: R06.02 Shortness of breath (principal)

== ENCOUNTER 2019-03-27 12:35 | Emergency (ER) | payer MEDICARE, OTHER ==
[~2019-03-27] VITALS: Ht 160 cm; Wt 85.9 kg
[~2019-03-27 12:35] MED LIST changes: +KLOR-CON 1010 MEQ; -KLOR-CON 1010 MEQ PO; -TRULICITY0.75 MG/0. SQ; +TRULICITY1.5 MG/0.5 SQ
[2019-03-27 12:41] VITALS: BP 120/67; TEMP 97.8
[2019-03-27] MEDS ORDERED: TYLENOL W/COD1 UDTAB PO (14:22)
[2019-03-27] MEDS ORDERED: MEDROL 4MG DOSPA4 MG PO (14:22)
[2019-03-27] MEDS ORDERED: LIDODERM 5% PATC1 EA TP (14:57)
[2019-03-27 15:58] VITALS: PULSE 86
[2019-03-27] MEDS ORDERED: DEXILANT60 MG PO (17:30)
[2019-03-27] MEDS ORDERED: FLORINEF ACETA0.1 MG PO (17:32)
[2019-03-27] MEDS ORDERED: BOTOX200 U (17:33)
[2019-03-27] MEDS ORDERED: MELATONIN3 M1 (17:33)
[2019-03-27] MEDS ORDERED: MIRALAX PA17 GM/Dose PO (17:34)
[2019-03-27] MEDS ORDERED: DEMADEX10 MG PO (17:35)
[2019-03-27] MEDS ORDERED: VITAMIN D31000 IU PO (17:35)
== END 2019-03-27 16:01 | disposition home or self-care (01) ==
LOC: COL.ER 12:35
DX: M79.652 Pain in left thigh (principal); Z79.01 Long term (current) use of anticoagulants
CPT/HCPCS: J1170; J7512

== ENCOUNTER 2019-03-30 15:34 | Emergency (ER) | payer MEDICARE, OTHER ==
[~2019-03-30] VITALS: Ht 160 cm; Wt 85.5 kg
[~2019-03-30 15:34] MED LIST changes: +BOTOX200 U; +DEMADEX10 MG PO; +DEXILANT60 MG PO; +FLORINEF ACETA0.1 MG PO; +LIDODERM 5% PATC1 EA TP; +MEDROL 4MG DOSPA4 MG PO; +MELATONIN3 M1; +VITAMIN D31000 IU PO
[2019-03-30 15:44] VITALS: BP 137/84; TEMP 98.6
[2019-03-30 17:28] LABS: COLLECTION METHOD CLEAN CATCH
[2019-03-30 17:35] LABS: MUCOUS Present /lpf; PH 6 (5-8); SQUAMOUS EPITHELIAL None Seen /hpf; URINE APPEARANCE Clear; URINE BACTERIA None Seen /hpf; URINE BILIRUBIN Negative (NEGATIVE); URINE BLOOD Negative (NEGATIVE); URINE COLOR Yellow; URINE GLUCOSE Negative (NEGATIVE); URINE KETONE Negative (NEGATIVE); URINE LEUKOCYTE ESTERASE Negative (NEGATIVE); URINE NITRATE Negative (NEGATIVE); URINE PROTEIN(semi-quant) Negative (NEGATIVE); URINE RBC 0-2 /hpf; URINE UROBILINOGEN Negative (NEGATIVE)
[2019-03-30] MEDS ORDERED: NORCO 325 MG-51 TAB PO (18:50)
[2019-03-30 19:26] VITALS: PULSE 92
== END 2019-03-30 19:27 | disposition home or self-care (01) ==
LOC: COL.ER 15:34
PROVIDERS: Emergency Medicine
DX: M54.42 Lumbago with sciatica, left side (principal); I25.10 Atherosclerotic heart disease of native coronary artery without angina pectoris; I50.9 Heart failure, unspecified; E11.40 Type 2 diabetes mellitus with diabetic neuropathy, unspecified; G35 Multiple sclerosis; K31.84 Gastroparesis; Z85.3 Personal history of malignant neoplasm of breast; Z90.49 Acquired absence of other specified parts of digestive tract; Z86.718 Personal history of other venous thrombosis and embolism; Z90.710 Acquired absence of both cervix and uterus; Z79.51 Long term (current) use of inhaled steroids; Z79.01 Long term (current) use of anticoagulants
CPT/HCPCS: J1170

== ENCOUNTER 2019-04-02 15:22 | Emergency (ER) | payer MEDICARE, OTHER ==
[~2019-04-02] VITALS: Ht 160 cm; Wt 84.5 kg
[2019-04-02 15:26] VITALS: TEMP 97.5
[2019-04-02] MEDS ORDERED: PERCOCET 325 MG1 TA3 PO (16:02)
[2019-04-02] MEDS ORDERED: FLEXERIL 1010 MG/TAB PO (16:02)
[2019-04-02 18:09] VITALS: BP 107/50; PULSE 80
== END 2019-04-02 18:09 | disposition home or self-care (01) ==
LOC: COL.ER 15:22
DX: M54.42 Lumbago with sciatica, left side (principal); I25.10 Atherosclerotic heart disease of native coronary artery without angina pectoris; I50.9 Heart failure, unspecified; I82.409 Acute embolism and thrombosis of unspecified deep veins of unspecified lower extremity; E11.9 Type 2 diabetes mellitus without complications; K31.84 Gastroparesis; E87.5 Hyperkalemia; G35 Multiple sclerosis; Z79.51 Long term (current) use of inhaled steroids; Z79.01 Long term (current) use of anticoagulants
CPT/HCPCS: J1170; J2060

== ENCOUNTER 2019-04-03 13:58 | Emergency (ER) | payer MEDICARE, OTHER ==
[~2019-04-03] VITALS: Ht 160 cm; Wt 85.0 kg
[~2019-04-03 13:58] MED LIST changes: +PERCOCET 325 MG1 TA3 PO
[2019-04-03 14:09] VITALS: TEMP 98.3
[2019-04-03 16:09] LABS: COLLECTION METHOD CLEAN CATCH
[2019-04-03 16:25] LABS: MUCOUS Present /lpf; PH 7 (5-8); SQUAMOUS EPITHELIAL None Seen /hpf; URINE APPEARANCE Clear; URINE BACTERIA None Seen /hpf; URINE BILIRUBIN Negative (NEGATIVE); URINE BLOOD Negative (NEGATIVE); URINE COLOR Straw; URINE GLUCOSE Negative (NEGATIVE); URINE KETONE Negative (NEGATIVE); URINE LEUKOCYTE ESTERASE Negative (NEGATIVE); URINE NITRATE Negative (NEGATIVE); URINE PROTEIN(semi-quant) Negative (NEGATIVE); URINE RBC 0-2 /hpf; URINE UROBILINOGEN Negative (NEGATIVE)
[2019-04-03 18:52] VITALS: BP 112/75; PULSE 79
== END 2019-04-03 22:24 | disposition home or self-care (01) ==
LOC: COL.ER 13:58
PROVIDERS: Emergency Medicine
DX: M54.5 Low back pain (principal)
CPT/HCPCS: J1170; J1885

== ENCOUNTER 2019-04-07 15:49 | Observation (INO) | payer MEDICARE, OTHER ==
[~2019-04-07] VITALS: Ht 160 cm; Wt 86.4 kg
[~2019-04-07 15:49] MED LIST changes: -KLOR-CON 1010 MEQ; +KLOR-CON 1010 MEQ PO
[2019-04-07 16:28] LABS: ARTERIAL BLD GAS O2 SATURATION 95.4 % (92-100); ARTERIAL BLD GAS TCO2 CT 23.7; ARTERIAL BLOOD GAS HCO3 22.7 meq/L (22-26); ARTERIAL BLOOD GAS PCO2 34.6 mmHg (35-45); ARTERIAL BLOOD GAS PO2 80.6 mmHg (80-100); ARTERIAL BLOOD GAS pH 7.43 (7.35-7.45)
[2019-04-07 17:02] LABS: BASO % 0.1 % (0.0-2.0); GRAN # 9.4 (1.4-6.5); GRAN % 86.7 % (42.2-75.2); HEMOGLOBIN 14.4 g/dl (12.5-16.0); LYMPH # 0.9 (1.2-3.4); LYMPH % 8.2 % (20.0-51.0); MEAN CELL VOLUME 84 fl (80.0-100.0); MEAN CORPUSCULAR HEMOGLOBIN 27 pg (27.0-31.0); MEAN CORPUSCULAR HGB CONC 32 g/dl (33.0-37.0); MEAN PLATELET VOLUME 8.9 fl (7.4-10.4); MONO # 0.5 (0.1-0.6); MONO % 4.1 % (1.7-9.3); PLATELET COUNT 402 K/mm3 (130-400); RED BLOOD COUNT 5.39 M/mm3 (4.10-5.30); REDCELL DISTRIBUTION WIDTH-CV 15.5 % (11.5-14.5)
[2019-04-07 17:05] LABS: ALANINE AMINOTRANSFERASE 68 U/L (9-52); ALBUMIN 4.6 gm/dL (3.5-5.0); ALKALINE PHOSPHATASE 91 U/L (50-136); ANION GAP 13 mmol/L (7-16); AST,SGOT 36 U/L (15-37); BILIRUBIN,TOTAL 0.4 mg/dL (0.0-1.0); BLOOD UREA NITROGEN 56 mg/dL (7-17); CALCIUM 9.4 mg/dL (8.4-10.2); CARBON DIOXIDE 27 mmol/L (22-30); CHLORIDE 99 mmol/L (98-107); CREATININE, serum 1.71 (0.52-1.25); GLUCOSE 193 mg/dL (74-106); POTASSIUM 4.2 mmol/L (3.4-5.0); SODIUM 139 mmol/L (137-145); TOTAL PROTEIN 8.2 gm/dL (6.4-8.2)
[2019-04-07 17:06] LABS: INR 1.2 (0.8-3.0); PROTHROMBIN TIME 14.5 SECONDS (9.7-12.8)
[2019-04-07 17:20] LABS: TROPONIN-I < 0.012 ng/mL (0.000-0.035)
[2019-04-07 20:09] VITALS: BP 130/76; PULSE 95; TEMP 98
[2019-04-07] MEDS ORDERED: VITAMIND3 5000 PO (20:35)
[2019-04-07] MEDS ORDERED: LOFIBRA54 MG PO (20:37)
[2019-04-07] MEDS ORDERED: ZAROXOLYN 2.52.5 MG PO (20:40)
[2019-04-07] MEDS ORDERED: DEMADEX100 MG PO (20:41)
[2019-04-07] MEDS ORDERED: COPAXONE40 MG/ML SQ (20:42)
[2019-04-07] MEDS ORDERED: PROBIOTIC FORMU1 CAP PO (20:46)
[2019-04-07] MEDS ORDERED: CENTRUM MULTIG80 MCG PO (20:47)
[2019-04-07 22:03] LABS: MAGNESIUM 2.5 mg/dL (1.6-2.3)
[2019-04-07 22:17] LABS: TROPONIN-I 3 HR POST INITIAL < 0.012 ng/mL (0.000-0.034)
[2019-04-07 23:46] VITALS: BP 105/49; PULSE 78; TEMP 98.3
[2019-04-08] VITALS (10 sets, daily range): BP systolic 97–127; BP diastolic 42–57; PULSE 63–108; TEMP 97.5–98.5
--- NOTE | 2019-04-08 05:51 | NUR ---
SEE EMAR FOR DILAUDID ADMINISTRATION FOR C/O OF LOW BACK PAIN RATED AT A 8 ON 0-10 NUMERICAL PAIN SCALE. PATIENT HAS ORAL MEDICATIONS ORDERED BUT NPO FOR FIDENCIO SCAN. PATIENT REPORTING NEEDING TO URINATE PUT WANT GET UP BECAUSE OF PAIN. PATIENT EDUCATED AND ENCOURAGED TO URINATE AT LEAST EVERY 4 HOURS TO HELP AVOID URINARY RETENTION AND BLADDER INFECTION. PATIENT VERBALIZES UNDERSTANDING.
--- NOTE | 2019-04-08 07:51 | NUR ---
Assessment completed, alert/oriented, vital signs stable, reports pain still significant but is improved after receiving pain meds, stated her shortness of breath is also improved once pain is controlled, heart RRR, lungs CTA, Neurology has evaluated and feels this is chronic worsening of her neuropathy and would like to increase Gabapentin dose pending approval, there is also a Cardiology consult with feliciano and echo ordered for today, she denie sother needs at this time
--- NOTE | 2019-04-08 08:04 | NUR ---
Assessment completed, alert/oriented, vital signs stable, reports back pain is improved after receiving IV medicaitons, also reports SOA is improved now that pain is controlled, lungs CTA/ no resp.difficulty noted at rest, heart RRR/distal pulses are palpable, she haS a Cardiology consult made and and will have a Lexiscan and Echo done today, she is NPO, denies other needs at this time and will continue to monitor
[2019-04-08 08:29] LABS: COLLECTION METHOD CLEAN CATCH
[2019-04-08 08:44] LABS: ALBUMIN 4.1 gm/dL (3.5-5.0); BILIRUBIN,TOTAL 0.6 mg/dL (0.0-1.0); CALCIUM 9.6 mg/dL (8.4-10.2); CHOLESTEROL RISK RATIO 1.9; CREATININE, serum 1.43 (0.52-1.25); POTASSIUM 3.9 mmol/L (3.4-5.0); TOTAL PROTEIN 7.2 gm/dL (6.4-8.2)
[2019-04-08 08:47] LABS: MUCOUS Present /lpf; PH 5 (5-8); SQUAMOUS EPITHELIAL 0-2 /hpf; URINE APPEARANCE Clear; URINE BACTERIA Rare /hpf; URINE BILIRUBIN Negative (NEGATIVE); URINE BLOOD Negative (NEGATIVE); URINE COLOR Yellow; URINE GLUCOSE Negative (NEGATIVE); URINE KETONE Negative (NEGATIVE); URINE LEUKOCYTE ESTERASE 2+ (NEGATIVE); URINE NITRATE Negative (NEGATIVE); URINE PROTEIN(semi-quant) Negative (NEGATIVE); URINE UROBILINOGEN Negative (NEGATIVE)
[2019-04-08 08:57] LABS: BASO % 0.2 % (0.0-2.0); EOS % 0.3 % (0-4.0); GRAN # 8.4 (1.4-6.5); HEMATOCRIT 42.3 % (37.0-47.0); HEMOGLOBIN 13.2 g/dl (12.5-16.0); LYMPH # 3.7 (1.2-3.4); LYMPH % 28.6 % (20.0-51.0); MEAN CELL VOLUME 85 fl (80.0-100.0); MEAN CORPUSCULAR HEMOGLOBIN 27 pg (27.0-31.0); MEAN CORPUSCULAR HGB CONC 31 g/dl (33.0-37.0); MEAN PLATELET VOLUME 9.1 fl (7.4-10.4); MONO # 0.8 (0.1-0.6); MONO % 6.1 % (1.7-9.3); PLATELET COUNT 342 K/mm3 (130-400); RED BLOOD COUNT 4.96 M/mm3 (4.10-5.30); REDCELL DISTRIBUTION WIDTH-CV 15.7 % (11.5-14.5)
--- NOTE | 2019-04-08 13:05 | NUR ---
SW attended clinical rounds to discuss discharge planning. Patient lives at home with her . Patient's PCP is Dr Inman. Patient also sees a Project Surveyor, Neurologist and Translator/Interpreter. Patient's preferred pharmacy is [facility]. Patient does not use any medical equipment or home health services currently but she would like to be set up with home health at discharge. Patient is also interested in pircritical access hospital duty services as well. SW will meet with patient tomorrow with private duty resources and home health list. Patient reports she does have a DPOA-HC. SEAN will continue to follow.
--- NOTE | 2019-04-08 19:00 | NUR ---
Report received by Paulo CAPPS. Pt resting in bed at this time. Requesting pain meds at this time.
[2019-04-09 00:18] VITALS: BP 97/51; PULSE 80; TEMP 98.2
[2019-04-09 03:17] VITALS: BP 102/50; PULSE 84; TEMP 98.2
[2019-04-09 06:23] LABS: BASO % 0.4 % (0.0-2.0); EOS # 0.1 (0.0-0.7); EOS % 1.3 % (0-4.0); GRAN # 5.7 (1.4-6.5); GRAN % 61.8 % (42.2-75.2); HEMOGLOBIN 11.6 g/dl (12.5-16.0); LYMPH # 2.8 (1.2-3.4); LYMPH % 29.6 % (20.0-51.0); MEAN CELL VOLUME 86 fl (80.0-100.0); MEAN CORPUSCULAR HEMOGLOBIN 26 pg (27.0-31.0); MEAN CORPUSCULAR HGB CONC 31 g/dl (33.0-37.0); MEAN PLATELET VOLUME 8.9 fl (7.4-10.4); MONO # 0.6 (0.1-0.6); MONO % 6.4 % (1.7-9.3); PLATELET COUNT 296 K/mm3 (130-400); RED BLOOD COUNT 4.44 M/mm3 (4.10-5.30); REDCELL DISTRIBUTION WIDTH-CV 15.6 % (11.5-14.5)
[2019-04-09 06:35] LABS: CALCIUM 9.7 mg/dL (8.4-10.2); CREATININE, serum 1.17 (0.52-1.25)
--- NOTE | 2019-04-09 07:05 | NUR ---
Pt report provided to Katrina CAPPS. Pt resting in bed at this time with breakfast at bedside. Pt makes wants and needs known to staff members.
--- NOTE | 2019-04-09 07:45 | NUR ---
Received report. Met with patient and she was observed resting in bed with head slightly elevated. Night nurse administered PRN pain medication and visitied with patient and myself about stayin on top of pain for pain management. She agreed. Personal items and call light are within reach.
--- NOTE | 2019-04-09 07:46 | NUR ---
Pt was talking to pt regarding referal to neurosurgery in [place] has been sent. Pt mentioned to ortho staff member that MRI report was requested here at [facility]. This nurse talked to ortho staff member and mentioned verbal report was received from yesterdays nurse that MRI was requested although no note was found to who prior nurse talked to in the ortho office or if the request was faxed. Fax number for the medical unit was provided to staff member for report to be sent. Will await report. Pt aware of conversation between staff members due to conversation occuring on speaker phone on pts cell phone per pts request.
[2019-04-09 08:24] VITALS: BP 109/58; PULSE 82; TEMP 97.5
[2019-04-09] MEDS ORDERED: SENNA-S 50 MG-81 TAB PO (10:31)
[2019-04-09] MEDS ORDERED: CIPRO 250MG TA250 MG PO (10:32)
[2019-04-09] MEDS ORDERED: PERCOCET 325 MG1 TA3 PO (10:33)
--- NOTE | 2019-04-09 10:41 | NUR ---
SEAN met with patient about home health choices and private duty companies. SEAN provided the medicare.gov resource list for home health and also a list of private duty companies with prices. Patient chose [facility] for both. SEAN faxed referral and Sina from [facility] will visit patient this morning.
[2019-04-09 11:55] VITALS: BP 139/62; PULSE 101; TEMP 97.6
--- NOTE | 2019-04-09 13:55 | NUR ---
Patient is currently down for Janina scan with radiology staff.
[2019-04-09 16:02] VITALS: BP 108/57; PULSE 88; TEMP 97.4
--- NOTE | 2019-04-09 17:38 | NUR ---
Discharge instructions reviewed with pt regarding medication changes and follow-up appointments. Pt discharged home, escorted out of facility via WC accompanied by MARY Vazquez and pt's spouse.
== END 2019-04-09 17:40 | disposition home health service (06) ==
LOC: COL.ER 15:49 → MEDICAL 18:24
PROVIDERS: Emergency Medicine; Nurse Practitioner Family
DX: R06.09 Other forms of dyspnea (principal); E78.5 Hyperlipidemia, unspecified; I25.10 Atherosclerotic heart disease of native coronary artery without angina pectoris; G35 Multiple sclerosis; G43.909 Migraine, unspecified, not intractable, without status migrainosus; Z86.718 Personal history of other venous thrombosis and embolism; Z86.711 Personal history of pulmonary embolism; Z79.01 Long term (current) use of anticoagulants; D72.829 Elevated white blood cell count, unspecified; I50.22 Chronic systolic (congestive) heart failure; E11.40 Type 2 diabetes mellitus with diabetic neuropathy, unspecified; K59.00 Constipation, unspecified; Z85.3 Personal history of malignant neoplasm of breast; Z90.49 Acquired absence of other specified parts of digestive tract; Z92.21 Personal history of antineoplastic chemotherapy; Z90.710 Acquired absence of both cervix and uterus; Z80.3 Family history of malignant neoplasm of breast; Z80.1 Family history of malignant neoplasm of trachea, bronchus and lung; Z80.8 Family history of malignant neoplasm of other organs or systems; Z80.0 Family history of malignant neoplasm of digestive organs; Z83.3 Family history of diabetes mellitus; Z88.3 Allergy status to other anti-infective agents; Z88.8 Allergy status to other drugs, medicaments and biological substances
CPT/HCPCS: 99239; A4216; A9500; G0378; J0696; J1170; J2060; J2270; J2405; J7030

== ENCOUNTER 2019-04-12 14:37 | Emergency (ER) | payer MEDICARE, OTHER ==
[~2019-04-12] VITALS: Ht 160 cm; Wt 85.0 kg
[~2019-04-12 14:37] MED LIST changes: +CENTRUM MULTIG80 MCG PO; +CIPRO 250MG TA250 MG PO; +PROBIOTIC FORMU1 CAP PO; +SENNA-S 50 MG-81 TAB PO; +VITAMIND3 5000 PO
[2019-04-12 14:50] VITALS: BP 136/68; TEMP 97.9
[2019-04-12] MEDS ORDERED: FLEXERIL 1010 MG/TAB PO (14:54)
[2019-04-12 16:03] LABS: BASO % 0.4 % (0.0-2.0); EOS # 0.2 (0.0-0.7); EOS % 1.9 % (0-4.0); GRAN % 62.8 % (42.2-75.2); HEMATOCRIT 40.4 % (37.0-47.0); HEMOGLOBIN 12.5 g/dl (12.5-16.0); LYMPH # 2.4 (1.2-3.4); LYMPH % 25.3 % (20.0-51.0); MEAN CELL VOLUME 86 fl (80.0-100.0); MEAN CORPUSCULAR HEMOGLOBIN 27 pg (27.0-31.0); MEAN CORPUSCULAR HGB CONC 31 g/dl (33.0-37.0); MEAN PLATELET VOLUME 9.1 fl (7.4-10.4); MONO # 0.9 (0.1-0.6); MONO % 9.2 % (1.7-9.3); PLATELET COUNT 297 K/mm3 (130-400); RED BLOOD COUNT 4.71 M/mm3 (4.10-5.30); REDCELL DISTRIBUTION WIDTH-CV 15.7 % (11.5-14.5)
[2019-04-12 16:15] LABS: CALCIUM 9.7 mg/dL (8.4-10.2); CREATININE, serum 1.23 (0.52-1.25); POTASSIUM 3.8 mmol/L (3.4-5.0)
[2019-04-13 01:39] VITALS: PULSE 86
== END 2019-04-12 18:45 | disposition short-term general hospital (02) ==
LOC: COL.ER 14:37
PROVIDERS: Emergency Medicine
DX: M54.16 Radiculopathy, lumbar region (principal); M54.5 Low back pain; Z79.01 Long term (current) use of anticoagulants; W06.XXXA Fall from bed, initial encounter
CPT/HCPCS: J1170; J1885

== ENCOUNTER 2019-05-22 15:43 | Inpatient (IN) | payer MEDICARE, OTHER ==
[~2019-05-22] VITALS: Ht 160 cm; Wt 88.6 kg
[2019-05-22 18:03] LABS: BASO # 0.1 (0.0-0.2); BASO % 0.5 % (0.0-2.0); EOS # 0.2 (0.0-0.7); EOS % 1.4 % (0-4.0); GRAN # 6.8 (1.4-6.5); GRAN % 63.4 % (42.2-75.2); HEMATOCRIT 41.1 % (37.0-47.0); LYMPH # 2.7 (1.2-3.4); MEAN CELL VOLUME 81 fl (80.0-100.0); MEAN CORPUSCULAR HEMOGLOBIN 26 pg (27.0-31.0); MEAN CORPUSCULAR HGB CONC 32 g/dl (33.0-37.0); MEAN PLATELET VOLUME 9.6 fl (7.4-10.4); MONO % 9.2 % (1.7-9.3); PLATELET COUNT 432 K/mm3 (130-400); REDCELL DISTRIBUTION WIDTH-CV 14.8 % (11.5-14.5)
[2019-05-22 18:21] LABS: ALANINE AMINOTRANSFERASE 14 U/L (9-52); ALBUMIN 4.5 gm/dL (3.5-5.0); ALKALINE PHOSPHATASE 120 U/L (50-136); ANION GAP 16 mmol/L (7-16); AST,SGOT 39 U/L (15-37); BILIRUBIN,TOTAL 0.7 mg/dL (0.0-1.0); BLOOD UREA NITROGEN 46 mg/dL (7-17); CARBON DIOXIDE 37 mmol/L (22-30); CREATININE, serum 1.68 (0.52-1.25); GLUCOSE 151 mg/dL (74-106); SODIUM 135 mmol/L (137-145); TOTAL PROTEIN 8.3 gm/dL (6.4-8.2)
[2019-05-22 18:27] LABS: POTASSIUM 2.3 mmol/L (3.4-5.0)
[2019-05-22 18:28] LABS: CHLORIDE 83 mmol/L (98-107)
[2019-05-22 18:50] LABS: TROPONIN-I < 0.012 ng/mL (0.000-0.035)
--- NOTE | 2019-05-22 19:40 | NUR ---
Report received from ER.
--- NOTE | 2019-05-22 19:58 | NUR ---
Pt arrived to medical room via stretcher from ER. No acute distress noted. Pt moved to medical bed with slide board. Well tolerated by patient. Pt reports pain 3/10- generalized/aching. Respirations even and unlabored. Lungs clear. Abdomen soft, nontender. BS+. Pulses equal, strong. Neuro check WNL. Pt A&O, answering questions appropriately. Pt reports weakness. IV K+ infusing to L AC INT. Admission asssessment complete. Home medications reviewed. Will continue to monitor.
[2019-05-22 20:21] VITALS: BP 122/56; PULSE 89; TEMP 98.6
[2019-05-22 21:02] VITALS: BP 122/56; PULSE 89; TEMP 98.6
[2019-05-22 21:58] LABS: COLLECTION METHOD CLEAN CATCH
[2019-05-22 22:08] LABS: MUCOUS Present /lpf; PH 6 (5-8); SQUAMOUS EPITHELIAL 0-2 /hpf; URINE APPEARANCE Clear; URINE BACTERIA None Seen /hpf; URINE BILIRUBIN Negative (NEGATIVE); URINE BLOOD Negative (NEGATIVE); URINE COLOR Yellow; URINE GLUCOSE Negative (NEGATIVE); URINE KETONE Negative (NEGATIVE); URINE LEUKOCYTE ESTERASE 2+ (NEGATIVE); URINE NITRATE Negative (NEGATIVE); URINE PROTEIN(semi-quant) Negative (NEGATIVE); URINE RBC 0-2 /hpf; URINE UROBILINOGEN Negative (NEGATIVE)
[2019-05-22 23:53] VITALS: BP 106/46; PULSE 90; TEMP 98.5
--- NOTE | 2019-05-23 00:30 | NUR ---
Potassium replacement complete. IV fluids hung. Order for 3 hour post BMP. No distress noted. Pt denies needs. Will continue to monitor.
[2019-05-23 04:16] LABS: BASO % 0.5 % (0.0-2.0); EOS # 0.2 (0.0-0.7); EOS % 2.3 % (0-4.0); GRAN # 4.8 (1.4-6.5); GRAN % 57.9 % (42.2-75.2); LYMPH # 2.3 (1.2-3.4); MEAN CELL VOLUME 81 fl (80.0-100.0); MEAN CORPUSCULAR HGB CONC 32 g/dl (33.0-37.0); MEAN PLATELET VOLUME 9.5 fl (7.4-10.4); MONO % 11.7 % (1.7-9.3); PLATELET COUNT 357 K/mm3 (130-400); RED BLOOD COUNT 4.25 M/mm3 (4.10-5.30)
[2019-05-23 04:18] LABS: HEMATOCRIT 34.5 % (37.0-47.0); MEAN CORPUSCULAR HEMOGLOBIN 26 pg (27.0-31.0)
[2019-05-23 04:19] LABS: HEMOGLOBIN 10.9 g/dl (12.5-16.0)
[2019-05-23 04:27] LABS: CALCIUM 9.5 mg/dL (8.4-10.2); CREATININE, serum 1.47 (0.52-1.25)
[2019-05-23 04:36] VITALS: BP 105/60; PULSE 83; TEMP 97.9
[2019-05-23 04:36] LABS: POTASSIUM 2.7 mmol/L (3.4-5.0)
--- NOTE | 2019-05-23 04:40 | NUR ---
Post replacement K+ level of 2.7 called Candida WONG. Orders received for replacement using K+ protocol.
--- NOTE | 2019-05-23 06:27 | NUR ---
Pt sleeping this AM after being awake most of the shift. Pt is easy to wake up. No distress. 2nd dose of K replacement given. No needs noted.
--- NOTE | 2019-05-23 06:53 | NUR ---
Received report, notified that patient has low potassium. Order placed for re-check 3 hours after last dose of effervescent potassium which will be due at 1400. Patient is currently resting in bed on left side. Was reported that patient got poor sleep last night due to labs and frequent medication administration. Respirations are observed to be even and non-labored. Tele is indicating NSR. Personal items and call light is within reach.
[2019-05-23 07:56] VITALS: BP 104/52; PULSE 80; TEMP 97.7
--- NOTE | 2019-05-23 10:41 | NUR ---
Patient lives at home with her (Ger Garcia) in [place], [place] and plans to return home with her upon discharge. Patient is retired and disabled and receives support as needed from her or son (Marco Mercedes) as needed. Patient has no durable medical equipment anticipated needs at this time, her primary care physician is Dr. Katerine Inman and she also receives medical care from Dr. Shailesh Esteban, her pharmacy is [facility], and she does have advance directives for healthcare completed. Patient's DPOA is her son, Marco Mercedes, and his phone number is [phone]. No further needs at this time and social welfare administrator will follow as needed.
[2019-05-23 11:42] VITALS: BP 95/58; PULSE 72; TEMP 98.1
--- NOTE | 2019-05-23 15:06 | NUR ---
Patient arrived from ICU via bed at 1450. Was assisted to bed in room, tolerated well. Respiratory therapy with patient to bring bi-pap and adjust connection from wall to patient, is on 10L high flow nasal cannula. Daughter accompanied patient during move. Lungs are clear, lower lobes slightly diminished. Heart is regular rate and rhythm. Abdomen is rounded and firm, bowel sounds active and faint. Radial pulses 2+, pedal pulses 2+. No skin issues noted to heels or buttocks. There is a 20g IV noted to left hand, flushes well, dressing is dry and intact. There is no redness, swelling or drainage. Patient ihas a dialysis cath to the left chest, dressing is dry and intact. There is a dialysis fistula to the left upper arm which is inactive. Slight bruit noted. There is a graft to the right upper arm, strong bruit is noted. Denies having any pain. Does joke with staff about wanting a steak dinner tonight. Personal items and call light is within reach.
[2019-05-23 17:12] VITALS: BP 124/64; PULSE 96; TEMP 98.6
--- NOTE | 2019-05-23 18:28 | NUR ---
Patient is laying in bed resting on left side reading. Denies having pain. Voices she is pleased with her increased potassium level. Call light and personal items are within reach.
[2019-05-23 19:14] VITALS: BP 105/47; PULSE 89; TEMP 99.1
--- NOTE | 2019-05-23 20:45 | NUR ---
Patient assessed at this time. Alert and oriented, and able to make needs known. Denies having pain and discomfort. Took last potassium replacement. Level will be rechecked in the morning. Peripheral IV flushed to left AC. Site is without redness, warmth, swelling, and pain. Denies having SOB and dyspnea. LS CTA. HRR. Telemetry in place. BSAx4. Abdomen soft and non-tender. 2+ edema BLE. Resting in bed at this time. Call light is within reach.
[2019-05-23 23:35] VITALS: BP 107/52; PULSE 86; TEMP 98.1
[2019-05-24 03:26] VITALS: BP 105/53; PULSE 88; TEMP 98.5
--- NOTE | 2019-05-24 05:30 | NUR ---
Patient has denied having pain and discomfort this shift. Has been resting in bed. Voices no questions, needs, or concerns. Call light is within reach.
[2019-05-24 07:04] LABS: BASO # 0.1 (0.0-0.2); BASO % 0.7 % (0.0-2.0); EOS # 0.2 (0.0-0.7); EOS % 3.2 % (0-4.0); GRAN # 4.2 (1.4-6.5); GRAN % 56.6 % (42.2-75.2); HEMOGLOBIN 10.5 g/dl (12.5-16.0); LYMPH # 2.1 (1.2-3.4); LYMPH % 27.8 % (20.0-51.0); MEAN CELL VOLUME 83 fl (80.0-100.0); MEAN CORPUSCULAR HEMOGLOBIN 26 pg (27.0-31.0); MEAN CORPUSCULAR HGB CONC 31 g/dl (33.0-37.0); MEAN PLATELET VOLUME 9.5 fl (7.4-10.4); MONO # 0.8 (0.1-0.6); PLATELET COUNT 320 K/mm3 (130-400); RED BLOOD COUNT 4.12 M/mm3 (4.10-5.30); REDCELL DISTRIBUTION WIDTH-CV 14.9 % (11.5-14.5)
[2019-05-24 07:18] LABS: CALCIUM 9.4 mg/dL (8.4-10.2); CREATININE, serum 0.92 (0.52-1.25); MAGNESIUM 2.3 mg/dL (1.6-2.3); PHOSPHOROUS 2.9 mg/dL (2.5-4.5)
[2019-05-24 07:30] VITALS: BP 95/53; PULSE 81; TEMP 97.9
[2019-05-24 07:50] LABS: POTASSIUM 2.8 mmol/L (3.4-5.0)
--- NOTE | 2019-05-24 09:52 | NUR ---
ASSESSMENT COMPLETED, VITAL SIGNS STABLE, POTASSIUM 2.8 REPLACEMENT PROTOCOL IMPLEMENTED, HEART RRR, BILATERAL LUNGS CTA, PULSES PALPABLE, UP INDEPENDTLY, DENIES ANY OTHER SYNCOPE EPISODES, PATIENT STATES NO FURTHER NEEDS AT THIS TIME, PATIENT STATES SHE WOULD LIKE TO BE DISCHARGED TODAY.
[2019-05-24 10:56] VITALS: BP 105/50; PULSE 94; TEMP 98
[2019-05-24 16:33] VITALS: BP 90/41; PULSE 82; TEMP 97.9
[2019-05-24 19:23] VITALS: BP 101/51; PULSE 87; TEMP 98.4
--- NOTE | 2019-05-24 22:00 | NUR ---
Pt resting in bed. Her potassium level was 3.5 will follow protocol. Takes her HS meds without problems. States her arm in very sore where they had to take it out. INT is intact in R FA. Will continue to follow.
[2019-05-24 23:51] VITALS: BP 80/43; PULSE 78; TEMP 97.9
--- NOTE | 2019-05-25 00:25 | NUR ---
Hung first bag of potassium at 100mL/hr. Pt begins to c/o site burning. Decreased rate to 90mL/hr and then to 75mL/hr. Order to run NS with potassium but still c/o site burning and refuses to have potassium given. Stopped at this time.
--- NOTE | 2019-05-25 00:25 | NUR ---
Hung 1st of 2 bags of K+ per potassium protocol. Pt c/o site burning. Decreased rate to 90mL/hr and continue to burn. Fabiana notified and ordered to infuse a bag of NS 250mL with Potassium. Pt refusing any more potassium. Infusion stopped. States she cant get any sleep and just might call her husbanvd to come and get her.
[2019-05-25 05:44] VITALS: BP 106/55; PULSE 76; TEMP 97.9
[2019-05-25 06:29] LABS: CALCIUM 9.7 mg/dL (8.4-10.2); CREATININE, serum 0.9 (0.52-1.25); MAGNESIUM 2.2 mg/dL (1.6-2.3); POTASSIUM 3.1 mmol/L (3.4-5.0)
--- NOTE | 2019-05-25 07:10 | NUR ---
Pt asleep at shift change. Report given to GÉNESIS Bates.
[2019-05-25 07:51] VITALS: BP 94/45; PULSE 89; TEMP 97.4
--- NOTE | 2019-05-25 08:54 | NUR ---
Assessment completed, alert/oriented, vital signs stable, denies pain, reports no longer feeling weak and fatigued, potassium was up to 3.5 last night and they were trying to replace by IV and she did not tolerate this well so she refused and did not receive any further replacment and subsequently potassium this morning was 3.1, heart RRR/ distal pulses are palpable, lungs are CTA, she reports she is is planning to leave today reguardless if we discharge her or not, denies othe needs at this time
[2019-05-25 12:03] VITALS: BP 90/50; PULSE 101; TEMP 98.1
[2019-05-25 16:17] VITALS: BP 88/51; PULSE 91; TEMP 98.1
[2019-05-25] MEDS ORDERED: PROAMATINE10 MG PO (18:10)
[2019-05-27 02:30] LABS: ANTISCLERODERMA-70 AB XXX
[2019-05-27 02:33] LABS: ANA SCREEN with REFLEX SEE PCI FOR RESULTS; RHEUMATOID FACTOR-SCREEN SEE PCI FOR RESULTS; SJOGRENS SSA SEE PCI FOR RESULTS; SJOGRENS SSB SEE PCI FOR RESULTS
[2019-05-27 19:11] LABS: KAPPA FREE LIGHT CHAIN-SERUM 1.87 mg/dL (()); LAMDA FREE LIGHT CHAIN SERUM 1.49 mg/dL (())
[2019-06-02 05:08] LABS: C-ANCA SEE PCI FOR RESULTS
== END 2019-05-25 20:36 | disposition home or self-care (01) | DRG 683 ==
LOC: COL.ER 15:43 → MEDICAL 19:05 → COL.ER 19:05 → MEDICAL 23:00
PROVIDERS: Emergency Medicine; Internal Medicine Nephrology; Nurse Practitioner Family; Physician Assistant; ADMIT Hospitalist
DX: N17.9 Acute kidney failure, unspecified (principal); N39.0 Urinary tract infection, site not specified; I50.32 Chronic diastolic (congestive) heart failure; E27.40 Unspecified adrenocortical insufficiency; E87.6 Hypokalemia; T50.2X5A Adverse effect of carbonic-anhydrase inhibitors, benzothiadiazides and other diuretics, initial encounter; Z88.8 Allergy status to other drugs, medicaments and biological substances; Z91.041 Radiographic dye allergy status; E11.43 Type 2 diabetes mellitus with diabetic autonomic (poly)neuropathy; K31.84 Gastroparesis; I25.10 Atherosclerotic heart disease of native coronary artery without angina pectoris; G35 Multiple sclerosis; Z85.3 Personal history of malignant neoplasm of breast; Z86.718 Personal history of other venous thrombosis and embolism; Z79.01 Long term (current) use of anticoagulants; D47.3 Essential (hemorrhagic) thrombocythemia; E78.49 Other hyperlipidemia; I95.1 Orthostatic hypotension; N18.3 Chronic kidney disease, stage 3 (moderate); D64.89 Other specified anemias; E11.22 Type 2 diabetes mellitus with diabetic chronic kidney disease
CPT/HCPCS: 99222-AI; 99232-AI; 99239; J1815; J3480; J7030

== ENCOUNTER 2019-06-16 09:00 | Outpatient (RCR) | payer MEDICARE, OTHER ==
[~2019-06-16 09:00] MED LIST changes: +PROAMATINE10 MG PO
== END 2019-08-17 | disposition home or self-care (01) ==
LOC: WSST
DX: R41.841 Cognitive communication deficit (principal)

== ENCOUNTER 2019-07-04 17:37 | Emergency (ER) | payer MEDICARE, OTHER ==
[~2019-07-04] VITALS: Ht 160 cm; Wt 86.4 kg
[2019-07-04 18:10] VITALS: TEMP 98.4
[2019-07-04 19:14] LABS: BASO # 0.1 (0.0-0.2); BASO % 0.7 % (0.0-2.0); EOS # 0.3 (0.0-0.7); EOS % 4.2 % (0-4.0); GRAN # 4.7 (1.4-6.5); GRAN % 62.3 % (42.2-75.2); HEMATOCRIT 39.1 % (37.0-47.0); HEMOGLOBIN 12.1 g/dl (12.5-16.0); LYMPH # 1.8 (1.2-3.4); LYMPH % 23.6 % (20.0-51.0); MEAN CELL VOLUME 81 fl (80.0-100.0); MEAN CORPUSCULAR HEMOGLOBIN 25 pg (27.0-31.0); MEAN CORPUSCULAR HGB CONC 31 g/dl (33.0-37.0); MEAN PLATELET VOLUME 9.5 fl (7.4-10.4); MONO # 0.7 (0.1-0.6); MONO % 8.8 % (1.7-9.3); PLATELET COUNT 378 K/mm3 (130-400); RED BLOOD COUNT 4.84 M/mm3 (4.10-5.30); REDCELL DISTRIBUTION WIDTH-CV 15.5 % (11.5-14.5)
[2019-07-04 19:24] LABS: INR 1.4 (0.8-3.0); PROTHROMBIN TIME 15.9 SECONDS (9.7-12.8)
[2019-07-04 19:33] LABS: ALANINE AMINOTRANSFERASE 17 U/L (9-52); ALBUMIN 4.5 gm/dL (3.5-5.0); ALKALINE PHOSPHATASE 98 U/L (50-136); ANION GAP 14 mmol/L (7-16); AST,SGOT 30 U/L (15-37); BILIRUBIN,TOTAL 0.4 mg/dL (0.0-1.0); BLOOD UREA NITROGEN 22 mg/dL (7-17); CARBON DIOXIDE 27 mmol/L (22-30); CHLORIDE 103 mmol/L (98-107); CREATINE KINASE 67 U/L (30-135); GLUCOSE 121 mg/dL (74-106); MAGNESIUM 2.3 mg/dL (1.6-2.3); POTASSIUM 3.3 mmol/L (3.4-5.0); SODIUM 143 mmol/L (137-145); TOTAL PROTEIN 7.6 gm/dL (6.4-8.2)
[2019-07-04 19:42] LABS: TROPONIN-I < 0.012 ng/mL (0.000-0.035)
[2019-07-04 20:56] LABS: COLLECTION METHOD CLEAN CATCH
[2019-07-04 21:05] LABS: MUCOUS Present /lpf; PH 5 (5-8); SQUAMOUS EPITHELIAL None Seen /hpf; URINE APPEARANCE Clear; URINE BACTERIA None Seen /hpf; URINE BILIRUBIN Negative (NEGATIVE); URINE BLOOD Negative (NEGATIVE); URINE COLOR Straw; URINE GLUCOSE Negative (NEGATIVE); URINE KETONE Negative (NEGATIVE); URINE LEUKOCYTE ESTERASE Negative (NEGATIVE); URINE NITRATE Negative (NEGATIVE); URINE PROTEIN(semi-quant) Negative (NEGATIVE); URINE RBC 0-2 /hpf; URINE UROBILINOGEN Negative (NEGATIVE)
[2019-07-04 21:07] VITALS: BP 130/66; PULSE 85
== END 2019-07-04 21:23 | disposition home or self-care (01) ==
LOC: COL.ER 17:37
PROVIDERS: Emergency Medicine
DX: R55 Syncope and collapse (principal); E87.6 Hypokalemia; E11.43 Type 2 diabetes mellitus with diabetic autonomic (poly)neuropathy; E11.40 Type 2 diabetes mellitus with diabetic neuropathy, unspecified; E11.22 Type 2 diabetes mellitus with diabetic chronic kidney disease; K31.84 Gastroparesis; N18.9 Chronic kidney disease, unspecified; E78.5 Hyperlipidemia, unspecified; Z85.3 Personal history of malignant neoplasm of breast; Z86.711 Personal history of pulmonary embolism; Z90.49 Acquired absence of other specified parts of digestive tract; Z86.718 Personal history of other venous thrombosis and embolism; Z90.710 Acquired absence of both cervix and uterus
CPT/HCPCS: J7030

== ENCOUNTER → 2019-08-16 | Outpatient (CLI) | payer MEDICARE, OTHER | LOC: COL.RAD 12:52 | DX: G35 Multiple sclerosis (principal); G43.719 Chronic migraine without aura, intractable, without status migrainosus; M50.21 Other cervical disc displacement, high cervical region; M50.31 Other cervical disc degeneration, high cervical region | CPT/HCPCS: A9585 ==

== ENCOUNTER 2019-09-17 15:00 | Outpatient (RCR) | payer MEDICARE, OTHER | END 2019-09-19 | disposition still patient (30) | LOC: WSC | DX: G35 Multiple sclerosis (principal) ==

== ENCOUNTER 2019-12-09 12:28 | Emergency (ER) | payer MEDICARE, OTHER ==
[~2019-12-09] VITALS: Ht 162.6 cm; Wt 86.4 kg
[2019-12-09 13:39] LABS: BASO # 0.1 (0.0-0.2); BASO % 0.6 % (0.0-2.0); EOS # 0.2 (0.0-0.7); EOS % 2.1 % (0-4.0); GRAN # 4.9 (1.4-6.5); GRAN % 57.6 % (42.2-75.2); HEMATOCRIT 40.4 % (37.0-47.0); HEMOGLOBIN 12.2 g/dl (12.5-16.0); LYMPH # 2.5 (1.2-3.4); LYMPH % 29.1 % (20.0-51.0); MEAN CELL VOLUME 81 fl (80.0-100.0); MEAN CORPUSCULAR HEMOGLOBIN 24 pg (27.0-31.0); MEAN CORPUSCULAR HGB CONC 30 g/dl (33.0-37.0); MEAN PLATELET VOLUME 9.9 fl (7.4-10.4); MONO # 0.9 (0.1-0.6); MONO % 10.4 % (1.7-9.3); PLATELET COUNT 339 K/mm3 (130-400); RED BLOOD COUNT 5.02 M/mm3 (4.10-5.30); REDCELL DISTRIBUTION WIDTH-CV 18.5 % (11.5-14.5)
[2019-12-09 13:43] LABS: INR 1.3 (0.8-3.0); PROTHROMBIN TIME 15.5 SECONDS (9.7-12.8)
[2019-12-09 13:54] LABS: ALANINE AMINOTRANSFERASE 46 U/L (9-52); ALBUMIN 4.6 gm/dL (3.5-5.0); ALKALINE PHOSPHATASE 84 U/L (50-136); ANION GAP 11 mmol/L (7-16); AST,SGOT 44 U/L (15-37); BILIRUBIN,TOTAL 0.5 mg/dL (0.0-1.0); BLOOD UREA NITROGEN 23 mg/dL (7-17); CALCIUM 9.8 mg/dL (8.4-10.2); CARBON DIOXIDE 22 mmol/L (22-30); CHLORIDE 108 mmol/L (98-107); CREATININE, serum 1.07 (0.52-1.25); GLUCOSE 88 mg/dL (74-106); POTASSIUM 3.9 mmol/L (3.4-5.0); SODIUM 141 mmol/L (137-145); TOTAL PROTEIN 7.8 gm/dL (6.4-8.2)
[2019-12-09 14:20] LABS: C-REACTIVE PROTEIN < 0.5 mg/dL (0.0-0.9); TROPONIN-I < 0.012 ng/mL (0.000-0.035)
[2019-12-09 14:56] LABS: COLLECTION METHOD CLEAN CATCH
[2019-12-09 15:39] LABS: SQUAMOUS EPITHELIAL 0-2 /hpf; URINE BACTERIA None Seen /hpf; URINE RBC 0-2 /hpf
[2019-12-09 15:44] LABS: PH 6 (5-8); URINE APPEARANCE Clear; URINE BILIRUBIN Negative (NEGATIVE); URINE BLOOD Negative (NEGATIVE); URINE COLOR Yellow; URINE GLUCOSE Negative (NEGATIVE); URINE KETONE Negative (NEGATIVE); URINE LEUKOCYTE ESTERASE 1+ (NEGATIVE); URINE NITRATE Negative (NEGATIVE); URINE PROTEIN(semi-quant) Negative (NEGATIVE); URINE UROBILINOGEN Negative (NEGATIVE)
[2019-12-09] MEDS ORDERED: CEPHALEXIN500 M1 PO (16:28)
[2019-12-09] MEDS ORDERED: FLEXERIL 1010 MG/TAB PO (16:28)
[2019-12-09 16:55] VITALS: BP 105/68; PULSE 73; TEMP 97
== END 2019-12-09 16:55 | disposition home or self-care (01) ==
LOC: COL.ER 12:28
PROVIDERS: Emergency Medicine
DX: R53.81 Other malaise (principal); E11.9 Type 2 diabetes mellitus without complications; I25.10 Atherosclerotic heart disease of native coronary artery without angina pectoris; G35 Multiple sclerosis; Z79.01 Long term (current) use of anticoagulants; Z90.710 Acquired absence of both cervix and uterus; Z90.89 Acquired absence of other organs; Z86.718 Personal history of other venous thrombosis and embolism; Z79.84 Long term (current) use of oral hypoglycemic drugs
CPT/HCPCS: A4216; J0696; J2060; J2550; J7030

== ENCOUNTER → 2020-01-10 | Outpatient (CLI) | payer MEDICARE, OTHER ==
[~2020-01-10] MED LIST changes: +CEPHALEXIN500 M1 PO
== END ==
LOC: MC.RAD 12-30 09:15
DX: Z12.31 Encounter for screening mammogram for malignant neoplasm of breast (principal); Z00.00 Encounter for general adult medical examination without abnormal findings

== ENCOUNTER 2020-04-04 15:06 | Emergency (ER) | payer MEDICARE, OTHER ==
[~2020-04-04] VITALS: Ht 157.5 cm; Wt 86.4 kg
[2020-04-04 15:11] VITALS: TEMP 98.5
[2020-04-04 15:50] LABS: BASO # 0.1 (0.0-0.2); BASO % 0.7 % (0.0-2.0); EOS # 0.2 (0.0-0.7); EOS % 2.5 % (0-4.0); GRAN # 4.4 (1.4-6.5); GRAN % 64.1 % (42.2-75.2); HEMATOCRIT 41.9 % (37.0-47.0); HEMOGLOBIN 12.7 g/dl (12.5-16.0); LYMPH # 1.8 (1.2-3.4); LYMPH % 26.9 % (20.0-51.0); MEAN CELL VOLUME 84 fl (80.0-100.0); MEAN CORPUSCULAR HEMOGLOBIN 26 pg (27.0-31.0); MEAN CORPUSCULAR HGB CONC 30 g/dl (33.0-37.0); MONO # 0.4 (0.1-0.6); MONO % 5.4 % (1.7-9.3); PLATELET COUNT 327 K/mm3 (130-400); RED BLOOD COUNT 4.98 M/mm3 (4.10-5.30); REDCELL DISTRIBUTION WIDTH-CV 16.9 % (11.5-14.5)
[2020-04-04 15:55] LABS: INR 1.4 (0.8-3.0); PROTHROMBIN TIME 15.6 SECONDS (9.7-12.8)
[2020-04-04 16:11] LABS: ALANINE AMINOTRANSFERASE 33 U/L (4-34); ALBUMIN 4.4 gm/dL (3.5-5.0); ALKALINE PHOSPHATASE 69 U/L (50-136); ANION GAP 10 mmol/L (7-16); AST,SGOT 34 U/L (15-37); BILIRUBIN,TOTAL 0.6 mg/dL (0.0-1.0); BLOOD UREA NITROGEN 25 mg/dL (7-17); CALCIUM 9.9 mg/dL (8.4-10.2); CARBON DIOXIDE 21 mmol/L (22-30); CHLORIDE 108 mmol/L (98-107); CREATINE KINASE 77 U/L (30-135); CREATININE, serum 1.34 (0.52-1.25); GLUCOSE 156 mg/dL (74-106); POTASSIUM 3.4 mmol/L (3.4-5.0); SODIUM 139 mmol/L (137-145); TOTAL PROTEIN 7.6 gm/dL (6.4-8.2)
[2020-04-04 16:23] LABS: TROPONIN-I < 0.012 ng/mL (0.000-0.035)
[2020-04-04 19:12] VITALS: BP 127/65; PULSE 74
== END 2020-04-04 19:12 | disposition home or self-care (01) ==
LOC: COL.ER 15:06
PROVIDERS: Emergency Medicine
DX: R42 Dizziness and giddiness (principal); R55 Syncope and collapse; I10 Essential (primary) hypertension; E11.43 Type 2 diabetes mellitus with diabetic autonomic (poly)neuropathy; K31.84 Gastroparesis; G43.909 Migraine, unspecified, not intractable, without status migrainosus; Z86.718 Personal history of other venous thrombosis and embolism; Z85.3 Personal history of malignant neoplasm of breast; Z90.49 Acquired absence of other specified parts of digestive tract; Z90.710 Acquired absence of both cervix and uterus; Z79.01 Long term (current) use of anticoagulants
CPT/HCPCS: J3010; J7030

== ENCOUNTER 2020-06-10 19:44 | Inpatient (IN) | payer MEDICARE, OTHER ==
[~2020-06-10] VITALS: Ht 160 cm; Wt 86.9 kg
[2020-06-10 21:02] LABS: BASO # 0.1 (0.0-0.2); BASO % 0.9 % (0.0-2.0); EOS # 0.3 (0.0-0.7); EOS % 2.8 % (0-4.0); GRAN # 5.9 (1.4-6.5); GRAN % 58.1 % (42.2-75.2); HEMATOCRIT 44.2 % (37.0-47.0); HEMOGLOBIN 13.8 g/dl (12.5-16.0); LYMPH # 3.1 (1.2-3.4); LYMPH % 30.5 % (20.0-51.0); MEAN CELL VOLUME 82 fl (80.0-100.0); MEAN CORPUSCULAR HEMOGLOBIN 26 pg (27.0-31.0); MEAN CORPUSCULAR HGB CONC 31 g/dl (33.0-37.0); MONO # 0.7 (0.1-0.6); MONO % 7.3 % (1.7-9.3); PLATELET COUNT 318 K/mm3 (130-400); RED BLOOD COUNT 5.38 M/mm3 (4.10-5.30); REDCELL DISTRIBUTION WIDTH-CV 17.2 % (11.5-14.5)
[2020-06-10 21:12] LABS: ALBUMIN 4.4 gm/dL (3.5-5.0); BILIRUBIN,TOTAL 0.6 mg/dL (0.0-1.0); C-REACTIVE PROTEIN 0.8 mg/dL (0.0-0.9); CALCIUM 10.1 mg/dL (8.4-10.2); CREATININE, serum 1.14 (0.52-1.25); POTASSIUM 3.7 mmol/L (3.4-5.0); TOTAL PROTEIN 8.1 gm/dL (6.4-8.2)
[2020-06-11] MEDS ORDERED: PRENATAL PO (09:24)
[2020-06-11] MEDS ORDERED: ZOLOFT 100MG100 MG PO (09:25)
[2020-06-11] MEDS ORDERED: LYRICA 50MG CAP50 MG PO (09:25)
[2020-06-11] MEDS ORDERED: ALDACTONE 25MG25 M1 PO (09:26)
[2020-06-11 11:14] VITALS: BP 126/57; PULSE 70; TEMP 98.1
--- NOTE | 2020-06-11 11:14 | NUR ---
SW met with patient to complete intake. Patient states that she lives in [place], [place] with her Sher [phone]. Patient states that she does not utilize any DME and is independent at home with ADL's. Patient states that her PCP is Dr. Inman, obtains her medications from [facility]. Patient states that she is able to afford her medications. Patient states that she has appointed her son as her DP-HC Marco Mercedes [phone]. Patient provides that she does not wish to fill out a form for this as she has this documentation at her home. Patient states that she has not utilized any Home health services in the past. SW provided that if needed upon discharge the SW team will assist in setting up home health services. Patient states that she plans to go back to her home upon discharge, and does not have any questions or concerns at this time. SW will continue to follow.
--- NOTE | 2020-06-11 12:40 | NUR ---
Dr Julio here to see patient, see orders.
--- NOTE | 2020-06-11 14:23 | NUR ---
SW update spoke with nurse about patient needing express unit [facility] for four days in express-outpatient. notified house for setup. No on-call for express unit setup. Please follow up for service.s
[2020-06-11 16:08] VITALS: BP 130/58; PULSE 81; TEMP 98.9
[2020-06-11] MEDS ORDERED: SOLU-MEDRO1000 MG/1 IV ×2 (17:06→17:08)
[2020-06-11] MEDS ORDERED: PREDNISONE10 MG PO (17:06)
--- NOTE | 2020-06-11 19:03 | NUR ---
Discharge instructions reviewed with patient, verbalized understanding. Discharged via wheelchair to auto/home with family at 1904.
== END 2020-06-11 19:04 | disposition home or self-care (01) | DRG 59 ==
LOC: COL.ER 19:44 → MEDICAL 22:20
PROVIDERS: Emergency Medicine; ADMIT Hospitalist
DX: G35 Multiple sclerosis (principal); I50.32 Chronic diastolic (congestive) heart failure; G81.94 Hemiplegia, unspecified affecting left nondominant side; H93.A9 Pulsatile tinnitus, unspecified ear; E78.5 Hyperlipidemia, unspecified; E11.9 Type 2 diabetes mellitus without complications; Z79.4 Long term (current) use of insulin; Z85.3 Personal history of malignant neoplasm of breast; Z86.718 Personal history of other venous thrombosis and embolism; Z79.01 Long term (current) use of anticoagulants; Z86.711 Personal history of pulmonary embolism; G43.909 Migraine, unspecified, not intractable, without status migrainosus; Z88.8 Allergy status to other drugs, medicaments and biological substances; Z91.041 Radiographic dye allergy status
CPT/HCPCS: 99223-AI; 99232-AI; A9585; J1885; J2405; J2930; J3360; J7030; J7050

== ENCOUNTER 2020-06-15 14:00 | Outpatient (RCR) | payer MEDICARE, OTHER ==
[2020-06-12 14:45] VITALS: BP 125/55; PULSE 77; TEMP 99
--- NOTE | 2020-06-12 17:04 | NUR ---
INT to left hand left in place for use during tomorrow's infusion. Hub of pigtail tubing cusioned with 2x2, and site wraped with coban. Home cares of site reviewed with pt, and she expresses understanding.
[2020-06-13 16:29] VITALS: BP 115/60; PULSE 68; TEMP 98
[2020-06-14 13:59] VITALS: BP 129/66; PULSE 62; TEMP 98.3
[2020-06-14 16:11] VITALS: BP 152/88; PULSE 74
--- NOTE | 2020-06-14 16:15 | NUR ---
Pt tolerated infusion well, she has napped during most of the infusion. IV site looks good, no redness or inflammation noted. site wrapped again with coban and left in place for infusion tommorow. pt is amb to exit at this time.
[~2020-06-15] VITALS: Ht 160 cm; Wt 87.3 kg
[~2020-06-15 14:00] MED LIST changes: +LYRICA 50MG CAP50 MG PO; +PREDNISONE10 MG PO; +PRENATAL PO; +SOLU-MEDRO1000 MG/1 IV; +ZOLOFT 100MG100 MG PO
[2020-06-15 14:01] VITALS: BP 132/75; PULSE 77; TEMP 98.5
== END 2020-06-15 17:17 | disposition still patient (30) ==
LOC: EUO 14:00
DX: Z79.899 Other long term (current) drug therapy (principal)
CPT/HCPCS: J2930; J7050

== ENCOUNTER → 2020-06-28 | Outpatient (CLI) | payer MEDICARE, OTHER | LOC: COL.CARD 10:19 | DX: R40.4 Transient alteration of awareness (principal); G43.719 Chronic migraine without aura, intractable, without status migrainosus ==

== ENCOUNTER 2020-07-06 10:18 | Emergency (ER) | payer MEDICARE, OTHER ==
[~2020-07-06] VITALS: Ht 160 cm; Wt 85.0 kg
[2020-07-06 10:29] VITALS: TEMP 97.9
[2020-07-06] MEDS ORDERED: PROAMATINE10 MG PO (11:11)
[2020-07-06 11:21] LABS: BASO % 0.4 % (0.0-2.0); EOS # 0.4 (0.0-0.7); EOS % 4.8 % (0-4.0); GRAN # 5.4 (1.4-6.5); HEMATOCRIT 41.2 % (37.0-47.0); LYMPH # 1.3 (1.2-3.4); LYMPH % 16.1 % (20.0-51.0); MEAN CELL VOLUME 83 fl (80.0-100.0); MEAN CORPUSCULAR HEMOGLOBIN 26 pg (27.0-31.0); MEAN CORPUSCULAR HGB CONC 32 g/dl (33.0-37.0); MEAN PLATELET VOLUME 9.7 fl (7.4-10.4); MONO # 0.8 (0.1-0.6); MONO % 10.1 % (1.7-9.3); PLATELET COUNT 210 K/mm3 (130-400); RED BLOOD COUNT 4.96 M/mm3 (4.10-5.30); REDCELL DISTRIBUTION WIDTH-CV 18.7 % (11.5-14.5)
[2020-07-06 11:35] LABS: ALANINE AMINOTRANSFERASE 35 U/L (4-34); ALBUMIN 3.8 gm/dL (3.5-5.0); ALKALINE PHOSPHATASE 55 U/L (50-136); ANION GAP 8 mmol/L (7-16); AST,SGOT 35 U/L (15-37); BILIRUBIN,TOTAL 0.7 mg/dL (0.0-1.0); BLOOD UREA NITROGEN 19 mg/dL (7-17); C-REACTIVE PROTEIN 3.4 mg/dL (0.0-0.9); CALCIUM 9.1 mg/dL (8.4-10.2); CARBON DIOXIDE 21 mmol/L (22-30); CHLORIDE 106 mmol/L (98-107); CREATININE, serum 1.03 (0.52-1.25); GLUCOSE 104 mg/dL (74-106); POTASSIUM 3.9 mmol/L (3.4-5.0); SODIUM 135 mmol/L (137-145); TOTAL PROTEIN 6.8 gm/dL (6.4-8.2)
[2020-07-06 11:43] LABS: INR 1.6 (0.8-3.0); PROTHROMBIN TIME 17.8 SECONDS (9.7-12.8)
[2020-07-06 11:46] LABS: PARTIAL THROMBOPLASTIN TIME 27.9 SECONDS (26.0-37.0)
[2020-07-06 11:51] LABS: TROPONIN-I < 0.012 ng/mL (0.000-0.035)
[2020-07-06 12:27] VITALS: BP 109/68; PULSE 79
== END 2020-07-06 12:32 | disposition home or self-care (01) ==
LOC: COL.ER 10:18
PROVIDERS: Physician Assistant
DX: R10.13 Epigastric pain (principal); E11.9 Type 2 diabetes mellitus without complications; I25.10 Atherosclerotic heart disease of native coronary artery without angina pectoris; Z86.718 Personal history of other venous thrombosis and embolism; Z86.711 Personal history of pulmonary embolism; Z85.3 Personal history of malignant neoplasm of breast; Z91.09 Other allergy status, other than to drugs and biological substances; Z79.01 Long term (current) use of anticoagulants

== ENCOUNTER 2020-12-07 10:58 | Day surgery (SDC) | payer MEDICARE, OTHER ==
[2020-12-07] VITALS (10 sets, daily range): BP systolic 86–147; BP diastolic 41–80; PULSE 69–84; TEMP 98.7
[~2020-12-07] VITALS: Ht 160 cm; Wt 84.5 kg
[2020-12-07] MEDS ORDERED: FLOVENT 110MCG7.9 GM IH (12:17)
[2020-12-07] MEDS ORDERED: COPAXONE40 MG/ML SQ (12:18)
[2020-12-07] MEDS ORDERED: VENTOLIN0.09 MG IH (12:19)
[2020-12-07] MEDS ORDERED: REQUIP 0.5MG0.5 MG PO (12:20)
[2020-12-07] MEDS ORDERED: PROTONIX 40MG T40 MG PO (12:22)
--- NOTE | 2020-12-07 13:06 | NUR ---
SEE MERGE DOCUMENTATION FOR MEDICATION ADMINISTRATION TIMES AND INTRA/POST PROCEDURE SEDATION ASSESSMENTS.
--- NOTE | 2020-12-07 16:00 | NUR ---
Pt assisted out to 's car by wheelchair. Gait steady in room. No further nausea. She expresses understanding of DC instructions.
== END 2020-12-07 15:45 | disposition home or self-care (01) ==
LOC: COL.CAR 10:58
DX: Z45.09 Encounter for adjustment and management of other cardiac device (principal); Z85.3 Personal history of malignant neoplasm of breast; I25.10 Atherosclerotic heart disease of native coronary artery without angina pectoris; Z86.718 Personal history of other venous thrombosis and embolism; E78.5 Hyperlipidemia, unspecified; I50.32 Chronic diastolic (congestive) heart failure; G35 Multiple sclerosis; Z86.711 Personal history of pulmonary embolism; Z90.49 Acquired absence of other specified parts of digestive tract; Z88.3 Allergy status to other anti-infective agents; Z88.7 Allergy status to serum and vaccine; G47.33 Obstructive sleep apnea (adult) (pediatric); E78.00 Pure hypercholesterolemia, unspecified
CPT/HCPCS: J2250; J2405; J3010; J7030

== ENCOUNTER 2021-01-17 18:25 | Emergency (ER) | payer MEDICARE, OTHER ==
[~2021-01-17] VITALS: Ht 160 cm; Wt 85.0 kg
[~2021-01-17 18:25] MED LIST changes: +FLOVENT 110MCG7.9 GM IH; +MELATONIN1 MG PO; -MELATONIN3 M1; +PROTONIX 40MG T40 MG PO
[2021-01-17 18:38] VITALS: TEMP 97.4
[2021-01-17 19:46] LABS: COLLECTION METHOD CLEAN CATCH
[2021-01-17 19:54] LABS: BILIRUBIN,TOTAL 0.5 mg/dL (0.0-1.0); CALCIUM 9.4 mg/dL (8.4-10.2); CREATININE, serum 1.01 (0.52-1.25); POTASSIUM 3.7 mmol/L (3.4-5.0); TOTAL PROTEIN 6.9 gm/dL (6.4-8.2)
[2021-01-17 20:11] LABS: BASO % 0.5 % (0.0-2.0); EOS # 0.2 (0.0-0.7); EOS % 2.4 % (0-4.0); GRAN # 4.2 (1.4-6.5); GRAN % 55.5 % (42.2-75.2); HEMATOCRIT 40.2 % (37.0-47.0); HEMOGLOBIN 12.4 g/dl (12.5-16.0); LYMPH # 2.4 (1.2-3.4); MEAN CELL VOLUME 87 fl (80.0-100.0); MEAN CORPUSCULAR HEMOGLOBIN 27 pg (27.0-31.0); MEAN CORPUSCULAR HGB CONC 31 g/dl (33.0-37.0); MEAN PLATELET VOLUME 9.7 fl (7.4-10.4); MONO # 0.7 (0.1-0.6); MONO % 8.9 % (1.7-9.3); PLATELET COUNT 259 K/mm3 (130-400); RED BLOOD COUNT 4.61 M/mm3 (4.10-5.30)
[2021-01-17 20:13] LABS: MUCOUS Present /lpf; PH 5 (5-8); SQUAMOUS EPITHELIAL 0-2 /hpf; URINE APPEARANCE Clear; URINE BACTERIA None Seen /hpf; URINE BILIRUBIN Negative (NEGATIVE); URINE BLOOD Negative (NEGATIVE); URINE COLOR Yellow; URINE GLUCOSE Negative (NEGATIVE); URINE KETONE Negative (NEGATIVE); URINE LEUKOCYTE ESTERASE Negative (NEGATIVE); URINE NITRATE Negative (NEGATIVE); URINE PROTEIN(semi-quant) Negative (NEGATIVE); URINE RBC 0-2 /hpf; URINE UROBILINOGEN Negative (NEGATIVE); URINE WBC 0-2 /hpf
[2021-01-17 22:32] VITALS: BP 134/76; PULSE 96
== END 2021-01-17 22:34 | disposition home or self-care (01) ==
LOC: COL.ER 18:25
PROVIDERS: Emergency Medicine
DX: R53.83 Other fatigue (principal); R53.81 Other malaise; R42 Dizziness and giddiness; G35 Multiple sclerosis; R53.1 Weakness; Z90.710 Acquired absence of both cervix and uterus; Z90.49 Acquired absence of other specified parts of digestive tract; Z86.718 Personal history of other venous thrombosis and embolism; Z86.711 Personal history of pulmonary embolism; Z88.8 Allergy status to other drugs, medicaments and biological substances; Z79.01 Long term (current) use of anticoagulants
CPT/HCPCS: J1100; J7030

== ENCOUNTER 2021-01-23 08:00 | Outpatient (RCR) | payer MEDICARE, OTHER ==
[2021-01-19 10:10] VITALS: BP 118/73; PULSE 66; TEMP 98.3
[2021-01-19 11:09] VITALS: BP 138/79; PULSE 68
[2021-01-20 09:00] VITALS: BP 135/72; PULSE 76; TEMP 98.2
[2021-01-21 10:19] VITALS: BP 130/69; PULSE 70; TEMP 98.5
[2021-01-22 08:05] VITALS: BP 147/85; PULSE 65; TEMP 98.7
--- NOTE | 2021-01-22 10:15 | NUR ---
INT to left forearm remains patent and free of s/s of infection or other issue. Site padded with 2x2 gauze and wrapped with gayle wrap, will remain in place for final solumedrol infusion tomorrow, and pt is aggreeable.
[~2021-01-23] VITALS: Ht 160 cm; Wt 86.0 kg
[2021-01-23 08:06] VITALS: BP 106/68; PULSE 71; TEMP 98.6
== END 2021-01-23 10:14 | disposition home or self-care (01) ==
LOC: EUO
DX: G35 Multiple sclerosis (principal)
CPT/HCPCS: J2930; J7050

== ENCOUNTER 2021-04-11 09:32 | Outpatient (RCR) | payer MEDICARE, OTHER ==
[2021-06-29] MEDS ORDERED: LOFIBRA54 MG PO (09:06)
[2021-06-29] MEDS ORDERED: DEMADEX5 MG PO (09:06)
[2021-06-29] MEDS ORDERED: AMBIEN 10MG10 MG PO (09:06)
[2021-06-29] MEDS ORDERED: ZANAFLEX2 MG PO (09:07)
== END 2021-07-10 ==
LOC: EUO
DX: G35 Multiple sclerosis (principal)

== ENCOUNTER → 2021-05-02 | Outpatient (CLI) | payer MEDICARE, OTHER ==
[~2021-05-02] MED LIST changes: +AMBIEN 10MG10 MG PO; +DEMADEX5 MG PO; +ZANAFLEX2 MG PO
== END ==
LOC: MHCPAIN 14:17
DX: M47.812 Spondylosis without myelopathy or radiculopathy, cervical region (principal); M54.12 Radiculopathy, cervical region; G35 Multiple sclerosis
CPT/HCPCS: G0463

== ENCOUNTER 2021-05-28 09:45 | Outpatient (RCR) | payer MEDICARE, OTHER ==
[~2021-05-28 09:45] MED LIST changes: -AMBIEN 10MG10 MG PO; -DEMADEX5 MG PO; -ZANAFLEX2 MG PO
[2021-06-29] MEDS ORDERED: LOFIBRA54 MG PO (09:06)
[2021-06-29] MEDS ORDERED: AMBIEN 10MG10 MG PO (09:06)
[2021-06-29] MEDS ORDERED: DEMADEX5 MG PO (09:06)
[2021-06-29] MEDS ORDERED: ZANAFLEX2 MG PO (09:07)
== END 2021-07-10 | disposition home or self-care (01) ==
LOC: WSST
DX: R41.841 Cognitive communication deficit (principal); R41.3 Other amnesia; G35 Multiple sclerosis

== ENCOUNTER 2021-06-29 07:58 | Day surgery (SDC) | payer MEDICARE, OTHER ==
[~2021-06-29] VITALS: Ht 160 cm; Wt 86.5 kg
[2021-06-29 08:56] VITALS: BP 126/87; PULSE 97; TEMP 96.7
[2021-06-29] MEDS ORDERED: AMBIEN 10MG10 MG PO (09:06)
[2021-06-29] MEDS ORDERED: LOFIBRA54 MG PO (09:06)
[2021-06-29] MEDS ORDERED: DEMADEX5 MG PO (09:06)
[2021-06-29] MEDS ORDERED: ZANAFLEX2 MG PO (09:07)
[2021-06-29 10:20] VITALS: BP 112/78; PULSE 85; TEMP 97.5
[2021-06-29 10:30] VITALS: BP 112/61; PULSE 78
[2021-06-29 10:45] VITALS: BP 118/59; PULSE 70
[2021-06-29 11:00] VITALS: BP 127/62; PULSE 70
--- NOTE | 2021-06-29 11:24 | NUR ---
1020 Pt returns from endo procedure to [place] [facility] via cart. Pt ambulates from cart to recliner with RN assist. Monitors on and alarms set. Call light within reach. Report received from GÉNESIS Vilchis. Pt alert and oriented. Pt denies pain and nausea. Pt states soreness in throat and tightness. Dr. Sung orders breathing treatment. Pt's present in room. Pt requests water. 1045 Pt taking water well. 1055 RT has not shown up, yet. Pt states her throat is feeling better now and less constricted. Pt states the water has helped and feels she doesn't need the breathing treatment. Dr. Sung consulted on this, and she and IESHA Ray, agree that if the pt is feeling better, the breathing treatment is not necessary. RT called and breathing treatment cancelled. 1110 Discharge information given to pt and . All questions answered to their satisfaction. Handed to them are a thank you card and discharge information. 1124 Pt transferred out of hospital via wheelchair and GÉNESIS Lion assist, to private vehicle driven by .
== END 2021-06-29 11:24 | disposition home or self-care (01) ==
LOC: SDCO 07:58
DX: R10.13 Epigastric pain (principal); R68.81 Early satiety; K44.9 Diaphragmatic hernia without obstruction or gangrene; I25.119 Atherosclerotic heart disease of native coronary artery with unspecified angina pectoris; I50.30 Unspecified diastolic (congestive) heart failure; I82.409 Acute embolism and thrombosis of unspecified deep veins of unspecified lower extremity; I26.99 Other pulmonary embolism without acute cor pulmonale; J45.909 Unspecified asthma, uncomplicated; K21.9 Gastro-esophageal reflux disease without esophagitis; K31.84 Gastroparesis; M19.90 Unspecified osteoarthritis, unspecified site; G43.909 Migraine, unspecified, not intractable, without status migrainosus; E11.9 Type 2 diabetes mellitus without complications; E78.5 Hyperlipidemia, unspecified; G35 Multiple sclerosis; G47.30 Sleep apnea, unspecified; F41.9 Anxiety disorder, unspecified; Z79.899 Other long term (current) drug therapy; Z79.01 Long term (current) use of anticoagulants; Z90.49 Acquired absence of other specified parts of digestive tract; Z90.710 Acquired absence of both cervix and uterus; Z80.3 Family history of malignant neoplasm of breast; Z80.1 Family history of malignant neoplasm of trachea, bronchus and lung
CPT/HCPCS: J2704; J7030

== ENCOUNTER → 2021-09-11 | Outpatient (CLI) | payer MEDICARE, OTHER ==
[~2021-09-11] MED LIST changes: +AMBIEN 10MG10 MG PO; +DEMADEX5 MG PO; +ZANAFLEX2 MG PO
== END ==
LOC: MC.RAD 07-18 10:30
DX: Z12.31 Encounter for screening mammogram for malignant neoplasm of breast (principal)

== ENCOUNTER → 2021-09-28 | Outpatient (CLI) | payer MEDICARE, OTHER | LOC: COL.RAD 09:44 | DX: K76.0 Fatty (change of) liver, not elsewhere classified (principal); K31.84 Gastroparesis; K58.9 Irritable bowel syndrome, unspecified | CPT/HCPCS: A9585 ==

== ENCOUNTER → 2021-10-09 | Outpatient (CLI) | payer MEDICARE, OTHER | LOC: COL.RAD 07:53 | DX: K31.84 Gastroparesis (principal); R19.7 Diarrhea, unspecified | CPT/HCPCS: A9541 ==

== ENCOUNTER → 2021-12-26 | Outpatient (CLI) | payer MEDICARE, OTHER | LOC: COL.RAD 11:45 | DX: G35 Multiple sclerosis (principal); H53.8 Other visual disturbances; F70 Mild intellectual disabilities; E56.0 Deficiency of vitamin E; R90.82 White matter disease, unspecified ==

== ENCOUNTER → 2022-08-13 | Day surgery (SDC) | payer MEDICARE, OTHER ==
[2022-08-13] VITALS (319 sets, daily range): BP systolic 103–150; BP diastolic 49–94; PULSE 68–103; TEMP 98.3; O2SAT 84–100
[~2022-08-13] VITALS: Ht 160 cm; Wt 69.8 kg
[~2022-08-13] MED LIST changes: +ADDERALL10 MG PO; +BENADRYL25 M2 PO; +CARDIZEM 60MG T60 MG PO; +DULCOLAX STOOL100 MG PO; +IMDUR 30MG30 MG/TAB PO; +MELATIN 3 MG-11 TAB PO; -MELATONIN1 MG PO; +PREDNISONE20 MG
[2022-08-13 08:51] LABS: HEMATOCRIT 43.7 % (37.0-47.0); MEAN CELL VOLUME 84 fl (80.0-100.0); MEAN CORPUSCULAR HEMOGLOBIN 27 pg (27-31); MEAN CORPUSCULAR HGB CONC 32 g/dl (33.0-37.0); MEAN PLATELET VOLUME 9.6 fl (7.4-10.4); PLATELET COUNT 299 K/mm3 (130-400); RED BLOOD COUNT 5.19 M/mm3 (4.10-5.30); REDCELL DISTRIBUTION WIDTH-CV 14.3 % (11.5-14.5)
[2022-08-13 09:00] LABS: INR 1.1 (0.8-3.0); PROTHROMBIN TIME 12.1 SECONDS (9.7-12.8)
[2022-08-13 09:02] LABS: PARTIAL THROMBOPLASTIN TIME 29.1 SECONDS (26.0-37.0)
[2022-08-13 09:09] LABS: CALCIUM 10.2 mg/dL (8.4-10.2); CREATININE, serum 0.99 mg/dL (0.57-1.11); POTASSIUM 4.2 mmol/L (3.5-4.5)
--- NOTE | 2022-08-13 10:38 | NUR ---
See merge for all medication, assessment, intervention, and vital sign times.
--- NOTE | 2022-08-13 12:15 | NUR ---
Pt is back from [employer], after left heart cath, rt groin access. no swelling or other sign of bleeding, site soft, cms intact distal. Pt is awake and alert, pwd, unlabored respirations. Pt aware of plan for 6 hour bedrest. call light in reach. lunch ordered.
--- NOTE | 2022-08-13 18:26 | NUR ---
Pt did well during her 6 hour bedrest and is now up and amb in room with steady gait. There has been no issue with her rt femoral puncture site, site remains soft without hematoma. There was scant drainage on a corner of gauze dressing, but this did no expand and again site remained soft, cms remains intact to RLE> Pt was able to eat some dinner, drink fluids, void using bedpan several times during her recovery. I reviewed instructions with patient regarding her dc/fu and rx instructions. Pt verbalized understanding. Pt was escorted to exit via wheelchair.
== END ==
LOC: COL.CAR 07:55
PROVIDERS: Internal Medicine Cardiovascular Disease
DX: I25.10 Atherosclerotic heart disease of native coronary artery without angina pectoris (principal); E78.00 Pure hypercholesterolemia, unspecified; G47.33 Obstructive sleep apnea (adult) (pediatric); I82.502 Chronic embolism and thrombosis of unspecified deep veins of left lower extremity
CPT/HCPCS: C1769; C1894; J1644; J2250; J2405; J3010; Q9967

== ENCOUNTER → 2023-01-13 | Outpatient (CLI) | payer MEDICARE, OTHER ==
[~2023-01-13] MED LIST changes: +CARDIZEM120 MG PO
== END ==
LOC: MHCPAIN 09:18
DX: M47.816 Spondylosis without myelopathy or radiculopathy, lumbar region (principal); M54.16 Radiculopathy, lumbar region; G35 Multiple sclerosis
CPT/HCPCS: G0463

== ENCOUNTER 2023-01-20 12:46 | Outpatient (RCR) | payer MEDICARE, OTHER ==
[~2023-01-20 12:46] MED LIST changes: -CARDIZEM120 MG PO
[2023-01-22] MEDS ORDERED: CARDIZEM120 MG PO (13:49)
== END 2023-02-14 | disposition home or self-care (01) ==
LOC: WSST
DX: R13.12 Dysphagia, oropharyngeal phase (principal)

== ENCOUNTER → 2023-01-30 | Outpatient (CLI) | payer MEDICARE, OTHER ==
[~2023-01-30] MED LIST changes: +CARDIZEM120 MG PO
== END ==
LOC: MHCPAIN 08:45
DX: M47.817 Spondylosis without myelopathy or radiculopathy, lumbosacral region (principal); M54.16 Radiculopathy, lumbar region
CPT/HCPCS: A9575; J1100

== ENCOUNTER → 2023-02-04 | Outpatient (CLI) | payer MEDICARE, OTHER | LOC: COL.RAD 15:29 | DX: R13.12 Dysphagia, oropharyngeal phase (principal) ==

== ENCOUNTER 2023-07-30 09:30 | Outpatient (CLI) | payer MEDICARE, OTHER ==
[~2023-07-30] VITALS: Ht 160 cm; Wt 73.6 kg
[~2023-07-30 09:30] MED LIST changes: +AJOVY225 MG/1.5 SQ; -CARDIZEM120 MG PO; +LINZESS145CAP PO; +MACROBID 1100 MG/CAP PO; +MELATONIN5 M1 SL; +NORCO 325 MG-7.1 TAB; +ROXICODONE 55 MG/TAB PO; +ULTRAM 50MG TAB50 MG; +ZOFRAN ODT8 MG PO
[2023-07-30 09:59] VITALS: BP 129/78; PULSE 75; TEMP 99
== END 2023-07-30 10:03 ==
LOC: EUO 09:30
DX: M81.0 Age-related osteoporosis without current pathological fracture (principal)
CPT/HCPCS: J0897

== ENCOUNTER 2023-07-30 11:21 | Emergency (ER) | payer MEDICARE, OTHER ==
[~2023-07-30] VITALS: Ht 160 cm; Wt 72.7 kg
[2023-07-30 11:33] VITALS: TEMP 97.9
[2023-07-30 13:13] LABS: BASO % 0.4 % (0.0-2.0); EOS % 0.4 % (0.0-4.0); GRAN # 6.6 K/mm3 (1.4-6.5); GRAN % 77.2 % (42.2-75.2); HEMATOCRIT 40.6 % (37.0-47.0); LYMPH # 1.2 K/mm3 (1.2-3.4); LYMPH % 14.4 % (20.0-51.0); MEAN CELL VOLUME 86 fl (80.0-100.0); MEAN CORPUSCULAR HEMOGLOBIN 28 pg (27-31); MEAN CORPUSCULAR HGB CONC 32 g/dl (33.0-37.0); MEAN PLATELET VOLUME 9.3 fl (7.4-10.4); MONO # 0.6 K/mm3 (0.1-0.6); MONO % 7.2 % (1.7-9.3); PLATELET COUNT 298 K/mm3 (130-400); RED BLOOD COUNT 4.72 M/mm3 (4.10-5.30); REDCELL DISTRIBUTION WIDTH-CV 14.1 % (11.5-14.5)
[2023-07-30 13:47] LABS: ALBUMIN 4.2 gm/dL (3.4-4.8); BILIRUBIN,TOTAL 0.7 mg/dL (0.2-1.2); C-REACTIVE PROTEIN 0.24 mg/dL (0.00-0.50); CALCIUM 9.9 mg/dL (8.4-10.2); CREATININE, serum 0.9 mg/dL (0.57-1.11); POTASSIUM 3.6 mmol/L (3.5-4.5); TOTAL PROTEIN 7.5 gm/dL (6.2-8.1)
[2023-07-30 15:02] VITALS: BP 157/69; PULSE 70
== END 2023-07-30 15:05 | disposition home or self-care (01) ==
LOC: COL.ER 11:21
PROVIDERS: Nurse Practitioner
DX: R20.2 Paresthesia of skin (principal)

== ENCOUNTER 2023-11-20 11:19 | Emergency (ER) | payer MEDICARE, OTHER ==
[~2023-11-20] VITALS: Ht 157.5 cm; Wt 72.7 kg
[2023-11-20 12:16] LABS: BASO % 0.4 % (0.0-2.0); EOS # 0.1 K/mm3 (0.0-0.7); GRAN # 6.9 K/mm3 (1.4-6.5); GRAN % 71.4 % (42.2-75.2); HEMATOCRIT 38.8 % (37.0-47.0); HEMOGLOBIN 12.6 g/dl (12.5-16.0); LYMPH # 1.3 K/mm3 (1.2-3.4); LYMPH % 13.5 % (20.0-51.0); MEAN CELL VOLUME 84 fl (80.0-100.0); MEAN CORPUSCULAR HEMOGLOBIN 27 pg (27-31); MEAN CORPUSCULAR HGB CONC 33 g/dl (33.0-37.0); MEAN PLATELET VOLUME 9.5 fl (7.4-10.4); MONO # 1.3 K/mm3 (0.1-0.6); MONO % 13.3 % (1.7-9.3); PLATELET COUNT 269 K/mm3 (130-400); RED BLOOD COUNT 4.63 M/mm3 (4.10-5.30); REDCELL DISTRIBUTION WIDTH-CV 13.6 % (11.5-14.5)
[2023-11-20 12:31] LABS: ALBUMIN 3.1 gm/dL (3.4-4.8); BILIRUBIN,TOTAL 0.5 mg/dL (0.2-1.2); CREATININE, serum 0.88 mg/dL (0.57-1.11); POTASSIUM 3.6 mmol/L (3.5-4.5); TOTAL PROTEIN 6.9 gm/dL (6.2-8.1)
[2023-11-20 12:35] LABS: COLLECTION METHOD CLEAN CATCH
[2023-11-20 13:25] LABS: URINE APPEARANCE Clear (CLEAR/HAZY); URINE BLOOD TRACE-INTACT (NEGATIVE); URINE COLOR Yellow (YELLOW); URINE GLUCOSE Negative (NEGATIVE); URINE KETONE TRACE (NEGATIVE); URINE NITRATE Negative (NEGATIVE); URINE PROTEIN(semi-quant) 1+ (NEGATIVE)
[2023-11-20 13:26] LABS: URINE BACTERIA Many /hpf (NONE SEEN)
[2023-11-20] MEDS ORDERED: CEFTIN500 MG PO (13:45)
[2023-11-20 14:05] VITALS: BP 141/63; PULSE 77; TEMP 98.3
== END 2023-11-20 14:05 | disposition home or self-care (01) ==
LOC: COL.ER 11:19
PROVIDERS: Physician Assistant
DX: N39.0 Urinary tract infection, site not specified (principal); R11.0 Nausea
CPT/HCPCS: J0696; J2405; J7030